=== PATIENT | female | born 1945 | race Caucasian/White ===

== ENCOUNTER → 2017-06-09 | Outpatient (REF) | payer OTHER ==
[2017-06-09 18:19] LABS: PERCENT SATURATION 45.6 % (13.2-37.4)
== END ==
LOC: M LAB REF 17:13
PROVIDERS: ATTEND Internal Medicine Nephrology
DX: N18.9 Chronic kidney disease, unspecified (principal); D63.1 Anemia in chronic kidney disease

== ENCOUNTER → 2017-10-14 | Outpatient (REF) | payer OTHER ==
[2017-10-14 18:50] LABS: FOLATE > 24.0 NG/ML; VITAMIN B12 LEVEL 1020 PG/ML
[2017-10-14 19:14] LABS: FREE T4 0.66 NG/DL (0.76-1.46)
== END ==
LOC: M LAB REF 17:23
PROVIDERS: ATTEND Internal Medicine Nephrology
DX: R63.4 Abnormal weight loss (principal); D53.1 Other megaloblastic anemias, not elsewhere classified

== ENCOUNTER 2018-03-06 13:39 | Inpatient (IN) | payer MEDICARE, OTHER ==
[2018-03-06] MEDS ORDERED: MAALOX 30 ML SUSP *UDC PO (17:45)
[2018-03-06] MEDS ORDERED: traZODone 50 MG TAB PO (17:45)
[2018-03-06] MEDS ORDERED: MOM 30ML SUSPENSION UDC PO (17:45)
[2018-03-06] MEDS: LATANOPROST 0.005% OPHTH SOLN 2.5 ML OU (22:24)
[2018-03-06] MEDS: SIMVASTATIN 20 MG TAB PO (22:24)
[2018-03-06] MEDS: OXcarbazepine 300 MG TAB PO (22:24)
[2018-03-06] MEDS: ACETAMINOPHEN TAB 650MG DOSE (2X325MG) PO (22:41)
[2018-03-07] MEDS: ACETAMINOPHEN TAB 650MG DOSE (2X325MG) PO ×4 (04:59→22:54)
[2018-03-07 07:12] LABS: BASO % 0.4 % (0.0-1.0); EOS # 0.2 10^3/uL (0.0-0.50); EOS % 1.6 % (0.0-3.0); HEMATOCRIT 33.4 % (36.0-47.0); HEMOGLOBIN 11.5 g/dl (12.0-15.5); IMMATURE GRANULOCYTE % 0.2 % (0-3.0); LYMPH # 1.6 10^3/uL (1.5-4.5); LYMPH % 17.6 % (24.0-44.0); MEAN CORPUSCULAR HEMOGLOBIN 34.6 pg (27.0-33.0); MEAN CORPUSCULAR HGB CONC 34.4 g/dl (32.0-36.5); MEAN CORPUSCULAR VOLUME 100.6 fl (80.0-96.0); MONO # 0.8 10^3/uL (0.0-0.8); MONO % 8.8 % (0.0-5.0); NEUTROPHILS # 6.5 10^3/uL (1.8-7.7); NEUTROPHILS % 71.4 % (36.0-66.0); PLATELET COUNT, AUTOMATED 202 10^3/uL (150-450); RED BLOOD COUNT 3.32 10^6/uL (4.00-5.40); RED CELL DISTRIBUTION WIDTH 11.5 % (11.5-14.5); WHITE BLOOD COUNT 9.2 10^3/uL (4.0-10.0)
[2018-03-07 07:35] LABS: ALBUMIN 3.8 GM/DL (3.2-5.2); ALBUMIN/GLOBULIN RATIO 1.36 (1.00-1.93); ALKALINE PHOSPHATASE 66 U/L (45-117); ALT/SGPT 28 U/L (12-78); ANION GAP 7 MEQ/L (8-16); AST/SGOT 27 U/L (7-37); BILIRUBIN,TOTAL 0.4 MG/DL (0.2-1.0); BLOOD UREA NITROGEN 38 MG/DL (7-18); CALCIUM LEVEL 9.2 MG/DL (8.8-10.2); CARBON DIOXIDE LEVEL 22 MEQ/L (21-32); CHLORIDE LEVEL 118 MEQ/L (98-107); CREATININE FOR GFR 1.83 MG/DL (0.55-1.30); GLOMERULAR FILTRATION RATE 29.1 (>39); GLUCOSE, FASTING 96 MG/DL (70-100); SODIUM LEVEL 147 MEQ/L (136-145); TOTAL PROTEIN 6.6 GM/DL (6.4-8.2)
[2018-03-07] MEDS: FUROSEMIDE 20 MG TAB PO (08:15)
[2018-03-07] MEDS: ASPIRIN 81 MG ENTERIC TAB PO (08:15)
[2018-03-07] MEDS: LOSARTAN 25 MG TAB PO (08:16)
[2018-03-07] MEDS: OXcarbazepine 300 MG TAB PO ×2 (08:16→20:35)
[2018-03-07] MEDS: ARIPiprazole 2 MG TAB PO (17:02)
[2018-03-07] MEDS: LATANOPROST 0.005% OPHTH SOLN 2.5 ML OU (20:35)
[2018-03-07] MEDS: SIMVASTATIN 20 MG TAB PO (20:35)
[2018-03-08] MEDS: ACETAMINOPHEN TAB 650MG DOSE (2X325MG) PO ×3 (05:06→21:16)
[2018-03-08] MEDS: OXcarbazepine 300 MG TAB PO ×2 (08:07→20:23)
[2018-03-08] MEDS: ASPIRIN 81 MG ENTERIC TAB PO (08:07)
[2018-03-08] MEDS: SIMVASTATIN 20 MG TAB PO (20:23)
[2018-03-08] MEDS: LATANOPROST 0.005% OPHTH SOLN 2.5 ML OU (20:24)
[2018-03-09] MEDS: ACETAMINOPHEN TAB 650MG DOSE (2X325MG) PO ×2 (03:29→22:11)
[2018-03-09] MEDS: OXcarbazepine 300 MG TAB PO ×2 (08:01→20:28)
[2018-03-09] MEDS: ASPIRIN 81 MG ENTERIC TAB PO (08:01)
[2018-03-09] MEDS: ACYCLOVIR 200 MG CAPSULE PO ×3 (13:36→20:28)
[2018-03-09] MEDS: ARIPiprazole 15 MG TAB (AbiLIFY) PO (20:28)
[2018-03-09] MEDS: SIMVASTATIN 20 MG TAB PO (20:28)
[2018-03-09] MEDS: LATANOPROST 0.005% OPHTH SOLN 2.5 ML OU (20:30)
[2018-03-10] MEDS: ACETAMINOPHEN TAB 650MG DOSE (2X325MG) PO ×2 (04:10→19:36)
[2018-03-10] MEDS: ACYCLOVIR 200 MG CAPSULE PO ×5 (06:11→22:07)
[2018-03-10 08:10] LABS: ALBUMIN 3.7 GM/DL (3.2-5.2); ALBUMIN/GLOBULIN RATIO 1.19 (1.00-1.93); ALKALINE PHOSPHATASE 75 U/L (45-117); ALT/SGPT 54 U/L (12-78); ANION GAP 5 MEQ/L (8-16); AST/SGOT 49 U/L (7-37); BILIRUBIN,TOTAL 0.4 MG/DL (0.2-1.0); BLOOD UREA NITROGEN 34 MG/DL (7-18); CALCIUM LEVEL 9.1 MG/DL (8.8-10.2); CARBON DIOXIDE LEVEL 22 MEQ/L (21-32); CHLORIDE LEVEL 115 MEQ/L (98-107); CREATININE FOR GFR 1.75 MG/DL (0.55-1.30); GLOMERULAR FILTRATION RATE 30.6 (>39); GLUCOSE, FASTING 105 MG/DL (70-100); POTASSIUM SERUM 3.9 MEQ/L (3.5-5.1); SODIUM LEVEL 142 MEQ/L (136-145); TOTAL PROTEIN 6.8 GM/DL (6.4-8.2)
[2018-03-10] MEDS: ASPIRIN 81 MG ENTERIC TAB PO (08:27)
[2018-03-10] MEDS: OXcarbazepine 300 MG TAB PO ×2 (08:27→20:50)
[2018-03-10 09:46] LABS: MAGNESIUM LEVEL 2.2 MG/DL (1.8-2.4)
[2018-03-10] MEDS: LATANOPROST 0.005% OPHTH SOLN 2.5 ML OU ×2 (20:50→21:18)
[2018-03-10] MEDS: SIMVASTATIN 20 MG TAB PO (20:50)
[2018-03-10] MEDS: ARIPiprazole 15 MG TAB (AbiLIFY) PO (20:50)
[2018-03-11] MEDS: ACYCLOVIR 200 MG CAPSULE PO ×5 (06:17→22:00)
[2018-03-11] MEDS: ACETAMINOPHEN TAB 650MG DOSE (2X325MG) PO ×2 (06:24→17:19)
[2018-03-11 07:45] LABS: HEMATOCRIT 33.2 % (36.0-47.0); HEMOGLOBIN 11.4 g/dl (12.0-15.5); MEAN CORPUSCULAR HEMOGLOBIN 34.2 pg (27.0-33.0); MEAN CORPUSCULAR HGB CONC 34.3 g/dl (32.0-36.5); MEAN CORPUSCULAR VOLUME 99.7 fl (80.0-96.0); PLATELET COUNT, AUTOMATED 183 10^3/uL (150-450); RED BLOOD COUNT 3.33 10^6/uL (4.00-5.40); RED CELL DISTRIBUTION WIDTH 11.7 % (11.5-14.5); WHITE BLOOD COUNT 15.8 10^3/uL (4.0-10.0)
[2018-03-11 08:26] LABS: ALBUMIN 3.6 GM/DL (3.2-5.2); ALBUMIN/GLOBULIN RATIO 1.16 (1.00-1.93); ALKALINE PHOSPHATASE 77 U/L (45-117); ALT/SGPT 67 U/L (12-78); ANION GAP 9 MEQ/L (8-16); AST/SGOT 51 U/L (7-37); BILIRUBIN,TOTAL 0.4 MG/DL (0.2-1.0); BLOOD UREA NITROGEN 33 MG/DL (7-18); CALCIUM LEVEL 9.2 MG/DL (8.8-10.2); CARBON DIOXIDE LEVEL 19 MEQ/L (21-32); CHLORIDE LEVEL 118 MEQ/L (98-107); CREATININE FOR GFR 1.91 MG/DL (0.55-1.30); GLOMERULAR FILTRATION RATE 27.7 (>39); GLUCOSE, FASTING 129 MG/DL (70-100); POTASSIUM SERUM 3.8 MEQ/L (3.5-5.1); SODIUM LEVEL 146 MEQ/L (136-145); TOTAL PROTEIN 6.7 GM/DL (6.4-8.2)
[2018-03-11] MEDS: ASPIRIN 81 MG ENTERIC TAB PO (08:40)
[2018-03-11] MEDS: OXcarbazepine 300 MG TAB PO (08:40)
[2018-03-11 09:38] LABS: ESTIMATED AVERAGE GLUCOSE 97 MG/DL (60-110)
[2018-03-11 10:34] LABS: IRON (FE) 16 UG/DL (50-170)
[2018-03-11 10:35] LABS: FERRITIN 733 NG/ML (8-252); PERCENT SATURATION 7.4 % (13.2-45.0); TOTAL IRON BINDING CAPACITY 217 UG/DL (250-450)
[2018-03-11] MEDS: cloNIDine 0.1 MG TAB PO (11:13)
[2018-03-11 14:30] LABS: KETONE, URINE AUTO RFX NEGATIVE (NEGATIVE); MUCUS, URINE RFX SMALL (NEGATIVE); NITRITE, URINE AUTO RFX NEGATIVE (NEGATIVE); RBC, URINE AUTO RFX 14 /HPF (0-3); SPECIFIC GRAVITY UR AUTO RFX 1.008 (1.002-1.035); SQUAM EPITHELIAL CELL UR AURFX 0 /HPF (0-6)
[2018-03-11 14:31] LABS: LEUKOCYTE ESTERASE UR AUTO RFX 3+ (NEGATIVE); WBC, URINE AUTO RFX TNTC /HPF (0-3)
[2018-03-11] MEDS: LACTOBACILLUS ACIDOPHILUS CAP (BACID) PO (20:22)
[2018-03-11] MEDS: CEPHALEXIN 500 MG CAP PO (20:22)
[2018-03-11] MEDS: OXcarbazepine 150 MG TAB PO (20:22)
[2018-03-11] MEDS: SIMVASTATIN 20 MG TAB PO (20:22)
[2018-03-11] MEDS: LATANOPROST 0.005% OPHTH SOLN 2.5 ML OU (21:00)
[2018-03-12] MEDS: ACETAMINOPHEN TAB 650MG DOSE (2X325MG) PO (01:42)
[2018-03-12] MEDS: ACYCLOVIR 200 MG CAPSULE PO ×2 (06:13→13:15)
[2018-03-12] MEDS: OXcarbazepine 150 MG TAB PO ×2 (08:10→21:00)
[2018-03-12] MEDS: ASPIRIN 81 MG ENTERIC TAB PO (08:10)
[2018-03-12] MEDS: LACTOBACILLUS ACIDOPHILUS CAP (BACID) PO ×2 (08:11→21:01)
[2018-03-12] MEDS: CEPHALEXIN 500 MG CAP PO ×2 (08:11→21:01)
[2018-03-12 11:07] LABS: HEMATOCRIT 31.3 % (36.0-47.0); HEMOGLOBIN 10.8 g/dl (12.0-15.5); MEAN CORPUSCULAR HEMOGLOBIN 34.8 pg (27.0-33.0); MEAN CORPUSCULAR HGB CONC 34.5 g/dl (32.0-36.5); PLATELET COUNT, AUTOMATED 147 10^3/uL (150-450); RED CELL DISTRIBUTION WIDTH 11.6 % (11.5-14.5); WHITE BLOOD COUNT 12.4 10^3/uL (4.0-10.0)
[2018-03-12 11:32] LABS: ALBUMIN 3.3 GM/DL (3.2-5.2); ALBUMIN/GLOBULIN RATIO 1.06 (1.00-1.93); ALKALINE PHOSPHATASE 71 U/L (45-117); ALT/SGPT 83 U/L (12-78); ANION GAP 10 MEQ/L (8-16); AST/SGOT 62 U/L (7-37); BILIRUBIN,TOTAL 0.4 MG/DL (0.2-1.0); BLOOD UREA NITROGEN 42 MG/DL (7-18); CARBON DIOXIDE LEVEL 19 MEQ/L (21-32); CHLORIDE LEVEL 112 MEQ/L (98-107); CREATININE FOR GFR 2.19 MG/DL (0.55-1.30); GLOMERULAR FILTRATION RATE 23.6 (>39); GLUCOSE, FASTING 87 MG/DL (70-100); POTASSIUM SERUM 3.4 MEQ/L (3.5-5.1); SODIUM LEVEL 141 MEQ/L (136-145); TOTAL PROTEIN 6.4 GM/DL (6.4-8.2)
[2018-03-12 12:40] LABS: HEPATITIS B CORE ANTIBODY IGM NEGATIVE (NEGATIVE); HEPATITIS C VIRUS ABY INDEX < 0.0 INDEX (<0.8)
[2018-03-12 12:42] LABS: HEPATITIS A ANTIBODY IGM NEGATIVE (NEGATIVE)
[2018-03-12 12:45] LABS: HEPATITIS B SURFACE ANTIGEN NEGATIVE (NEGATIVE)
[2018-03-12 13:10] LABS: VITAMIN B12 LEVEL 472 PG/ML (247-911)
[2018-03-12 13:15] LABS: FOLATE > 24.0 NG/ML (>5.4)
[2018-03-12] MEDS: SIMVASTATIN 20 MG TAB PO (21:01)
[2018-03-12] MEDS: ZIPRASIDONE 20MG CAPSULE (GEODON) PO (21:01)
[2018-03-12] MEDS: LATANOPROST 0.005% OPHTH SOLN 2.5 ML OU (21:38)
[2018-03-13] MEDS: ACETAMINOPHEN TAB 650MG DOSE (2X325MG) PO ×2 (06:02→14:14)
[2018-03-13 07:13] LABS: BASO % 0.2 % (0.0-1.0); HEMATOCRIT 29.7 % (36.0-47.0); HEMOGLOBIN 10.4 g/dl (12.0-15.5); IMMATURE GRANULOCYTE % 0.5 % (0-3.0); LYMPH # 0.8 10^3/uL (1.5-4.5); LYMPH % 6.4 % (24.0-44.0); MEAN CORPUSCULAR HEMOGLOBIN 34.8 pg (27.0-33.0); MEAN CORPUSCULAR VOLUME 99.3 fl (80.0-96.0); MONO # 1.2 10^3/uL (0.0-0.8); MONO % 9.1 % (0.0-5.0); NEUTROPHILS # 10.7 10^3/uL (1.8-7.7); NEUTROPHILS % 83.8 % (36.0-66.0); PLATELET COUNT, AUTOMATED 140 10^3/uL (150-450); RED BLOOD COUNT 2.99 10^6/uL (4.00-5.40); RED CELL DISTRIBUTION WIDTH 11.7 % (11.5-14.5); WHITE BLOOD COUNT 12.8 10^3/uL (4.0-10.0)
[2018-03-13 07:33] LABS: ALKALINE PHOSPHATASE 67 U/L (45-117); ALT/SGPT 71 U/L (12-78); ANION GAP 13 MEQ/L (8-16); AST/SGOT 58 U/L (7-37); BILIRUBIN,TOTAL 0.4 MG/DL (0.2-1.0); BLOOD UREA NITROGEN 44 MG/DL (7-18); CALCIUM LEVEL 8.8 MG/DL (8.8-10.2); CARBON DIOXIDE LEVEL 17 MEQ/L (21-32); CHLORIDE LEVEL 113 MEQ/L (98-107); CREATININE FOR GFR 2.23 MG/DL (0.55-1.30); GLOMERULAR FILTRATION RATE 23.1 (>39); GLUCOSE, FASTING 111 MG/DL (70-100); POTASSIUM SERUM 3.1 MEQ/L (3.5-5.1); SODIUM LEVEL 143 MEQ/L (136-145)
[2018-03-13] MEDS: ASPIRIN 81 MG ENTERIC TAB PO (08:55)
[2018-03-13] MEDS: CEPHALEXIN 500 MG CAP PO ×2 (08:56→21:17)
[2018-03-13] MEDS: ZIPRASIDONE 20MG CAPSULE (GEODON) PO ×2 (08:56→17:44)
[2018-03-13] MEDS: OXcarbazepine 150 MG TAB PO ×2 (08:57→21:17)
[2018-03-13] MEDS: LACTOBACILLUS ACIDOPHILUS CAP (BACID) PO ×3 (08:59→21:17)
[2018-03-13] MEDS: SIMVASTATIN 20 MG TAB PO (21:17)
[2018-03-13] MEDS: LATANOPROST 0.005% OPHTH SOLN 2.5 ML OU (21:20)
[2018-03-13] MEDS: POTASSIUM CHLORIDE 10% LIQ 20 MEQ/15 ML UDC PO (23:07)
[2018-03-14] MEDS: ACETAMINOPHEN TAB 650MG DOSE (2X325MG) PO (06:27)
[2018-03-14 06:34] LABS: BASO % 0.2 % (0.0-1.0); EOS % 0.1 % (0.0-3.0); HEMATOCRIT 26.7 % (36.0-47.0); HEMOGLOBIN 9.4 g/dl (12.0-15.5); IMMATURE GRANULOCYTE % 0.4 % (0-3.0); LYMPH % 7.8 % (24.0-44.0); MEAN CORPUSCULAR HEMOGLOBIN 34.8 pg (27.0-33.0); MEAN CORPUSCULAR HGB CONC 35.2 g/dl (32.0-36.5); MEAN CORPUSCULAR VOLUME 98.9 fl (80.0-96.0); MONO % 15.9 % (0.0-5.0); NEUTROPHILS # 9.8 10^3/uL (1.8-7.7); NEUTROPHILS % 75.6 % (36.0-66.0); PLATELET COUNT, AUTOMATED 138 10^3/uL (150-450); RED CELL DISTRIBUTION WIDTH 11.9 % (11.5-14.5)
[2018-03-14 06:53] LABS: ALBUMIN 2.6 GM/DL (3.2-5.2); ALBUMIN/GLOBULIN RATIO 0.87 (1.00-1.93); ALKALINE PHOSPHATASE 56 U/L (45-117); ALT/SGPT 65 U/L (12-78); ANION GAP 11 MEQ/L (8-16); AST/SGOT 61 U/L (7-37); BILIRUBIN,TOTAL 0.4 MG/DL (0.2-1.0); BLOOD UREA NITROGEN 53 MG/DL (7-18); CALCIUM LEVEL 8.7 MG/DL (8.8-10.2); CARBON DIOXIDE LEVEL 16 MEQ/L (21-32); CHLORIDE LEVEL 118 MEQ/L (98-107); CREATININE FOR GFR 2.42 MG/DL (0.55-1.30); GLUCOSE, FASTING 101 MG/DL (70-100); POTASSIUM SERUM 3.2 MEQ/L (3.5-5.1); SODIUM LEVEL 145 MEQ/L (136-145); TOTAL PROTEIN 5.6 GM/DL (6.4-8.2)
[2018-03-14 07:13] LABS: MONO # 2.1 10^3/uL (0.0-0.8); POSITIVE DIFF POS FLAG
[2018-03-14] MEDS: OXcarbazepine 150 MG TAB PO (08:54)
[2018-03-14] MEDS: CEPHALEXIN 500 MG CAP PO (08:54)
[2018-03-14] MEDS: ZIPRASIDONE 20MG CAPSULE (GEODON) PO ×2 (08:54→18:29)
[2018-03-14] MEDS: LACTOBACILLUS ACIDOPHILUS CAP (BACID) PO (08:54)
[2018-03-14] MEDS: ASPIRIN 81 MG ENTERIC TAB PO (08:54)
[2018-03-14] MEDS: PILL CRUSHER/CUTTER 1 EACH XX (08:55)
[2018-03-14] MEDS: POTASSIUM CHLORIDE 10% LIQ 20 MEQ/15 ML UDC PO (17:49)
[2018-03-14 17:58] LABS: BASO % 0.2 % (0.0-1.0); EOS % 0.3 % (0.0-3.0); HEMATOCRIT 30.2 % (36.0-47.0); HEMOGLOBIN 10.2 g/dl (12.0-15.5); IMMATURE GRANULOCYTE % 0.4 % (0-3.0); LYMPH % 7.6 % (24.0-44.0); MEAN CORPUSCULAR HGB CONC 33.8 g/dl (32.0-36.5); MEAN CORPUSCULAR VOLUME 100.7 fl (80.0-96.0); MONO # 1.8 10^3/uL (0.0-0.8); NEUTROPHILS # 9.7 10^3/uL (1.8-7.7); NEUTROPHILS % 77.5 % (36.0-66.0); PLATELET COUNT, AUTOMATED 145 10^3/uL (150-450); RED CELL DISTRIBUTION WIDTH 11.8 % (11.5-14.5); WHITE BLOOD COUNT 12.5 10^3/uL (4.0-10.0)
[2018-03-14 18:25] LABS: ALBUMIN/GLOBULIN RATIO 0.77 (1.00-1.93); ALKALINE PHOSPHATASE 63 U/L (45-117); ALT/SGPT 83 U/L (12-78); ANION GAP 7 MEQ/L (8-16); AST/SGOT 83 U/L (7-37); BILIRUBIN,TOTAL 0.3 MG/DL (0.2-1.0); BLOOD UREA NITROGEN 52 MG/DL (7-18); CALCIUM LEVEL 9.1 MG/DL (8.8-10.2); CARBON DIOXIDE LEVEL 19 MEQ/L (21-32); CHLORIDE LEVEL 116 MEQ/L (98-107); CREATININE FOR GFR 2.45 MG/DL (0.55-1.30); GLOMERULAR FILTRATION RATE 20.7 (>39); GLUCOSE, FASTING 134 MG/DL (70-100); SODIUM LEVEL 142 MEQ/L (136-145); TOTAL PROTEIN 6.9 GM/DL (6.4-8.2)
[2018-03-14] MEDS ORDERED: ACETAMINOPHEN TAB 650MG DOSE (2X325MG) PO (20:00)
[2018-03-14] MEDS ORDERED: NS 0.45% 1,000 ML IV (20:15)
[2018-03-15] MEDS ORDERED: ENOXAPARIN 30 MG/0.3 ML SYR (J1650) SC (09:00)
== END 2018-03-14 21:02 | disposition short-term general hospital (02) | DRG 885 ==
LOC: M PSY 03-12 17:01 → M ED 13:39 → M ED INP 17:39 → M PSY 20:15
DX: F31.0 Bipolar disorder, current episode hypomanic (principal); N39.0 Urinary tract infection, site not specified; N17.9 Acute kidney failure, unspecified; F05 Delirium due to known physiological condition; F43.10 Post-traumatic stress disorder, unspecified; I12.9 Hypertensive chronic kidney disease with stage 1 through stage 4 chronic kidney disease, or unspecified chronic kidney disease; E78.00 Pure hypercholesterolemia, unspecified; M79.661 Pain in right lower leg; M79.662 Pain in left lower leg; E86.0 Dehydration; R19.7 Diarrhea, unspecified; L71.9 Rosacea, unspecified; B96.1 Klebsiella pneumoniae [K. pneumoniae] as the cause of diseases classified elsewhere; E87.6 Hypokalemia; D64.9 Anemia, unspecified; E11.22 Type 2 diabetes mellitus with diabetic chronic kidney disease; N18.9 Chronic kidney disease, unspecified; Z79.82 Long term (current) use of aspirin; Z79.899 Other long term (current) drug therapy; Z88.8 Allergy status to other drugs, medicaments and biological substances

== ENCOUNTER 2018-03-14 21:05 | Inpatient (IN) | payer OTHER, MEDICARE ==
[2018-03-14 21:55] LABS: LACTIC ACID SEPSIS PROTOCOL 1.5 MMOL/L (0.4-2.0)
[2018-03-14 22:04] LABS: ANION GAP 10 MEQ/L (8-16); BLOOD UREA NITROGEN 50 MG/DL (7-18); CALCIUM LEVEL 8.4 MG/DL (8.8-10.2); CARBON DIOXIDE LEVEL 17 MEQ/L (21-32); CHLORIDE LEVEL 118 MEQ/L (98-107); CREATININE FOR GFR 2.33 MG/DL (0.55-1.30); GLUCOSE, FASTING 117 MG/DL (70-100); POTASSIUM SERUM 3.6 MEQ/L (3.5-5.1); SODIUM LEVEL 145 MEQ/L (136-145)
[2018-03-14] MEDS: NS 1,000 ML IV (22:13)
[2018-03-14] MEDS: LATANOPROST 0.005% OPHTH SOLN 2.5 ML OU (22:14)
[2018-03-14] MEDS: cefTRIAXone SOD 1 GM in D5W MINI-BAG PLUS 50 ML IV (22:14)
[2018-03-14] MEDS: POTASSIUM CHLORIDE 10% LIQ 20 MEQ/15 ML UDC PO (22:37)
[2018-03-15] MEDS: ACETAMINOPHEN TAB 650MG DOSE (2X325MG) PO ×4 (03:02→23:27)
[2018-03-15 05:18] LABS: BASO % 0.1 % (0.0-1.0); EOS % 0.2 % (0.0-3.0); HEMOGLOBIN 8.7 g/dl (12.0-15.5); IMMATURE GRANULOCYTE % 0.3 % (0-3.0); LYMPH # 0.9 10^3/uL (1.5-4.5); LYMPH % 8.8 % (24.0-44.0); MEAN CORPUSCULAR HEMOGLOBIN 34.1 pg (27.0-33.0); MEAN CORPUSCULAR HGB CONC 34.8 g/dl (32.0-36.5); MONO # 1.4 10^3/uL (0.0-0.8); NEUTROPHILS # 7.6 10^3/uL (1.8-7.7); NEUTROPHILS % 76.6 % (36.0-66.0); PLATELET COUNT, AUTOMATED 146 10^3/uL (150-450); RED BLOOD COUNT 2.55 10^6/uL (4.00-5.40); RED CELL DISTRIBUTION WIDTH 11.8 % (11.5-14.5)
[2018-03-15 05:42] LABS: FERRITIN 1145 NG/ML (8-252); IRON (FE) 27 UG/DL (50-170); PERCENT SATURATION 19.9 % (13.2-45.0); TOTAL IRON BINDING CAPACITY 136 UG/DL (250-450)
[2018-03-15 05:47] LABS: ALBUMIN 2.3 GM/DL (3.2-5.2); ALBUMIN/GLOBULIN RATIO 0.68 (1.00-1.93); ALKALINE PHOSPHATASE 58 U/L (45-117); ALT/SGPT 70 U/L (12-78); ANION GAP 9 MEQ/L (8-16); AST/SGOT 65 U/L (7-37); BILIRUBIN,TOTAL 0.2 MG/DL (0.2-1.0); BLOOD UREA NITROGEN 46 MG/DL (7-18); CALCIUM LEVEL 8.8 MG/DL (8.8-10.2); CARBON DIOXIDE LEVEL 15 MEQ/L (21-32); CHLORIDE LEVEL 123 MEQ/L (98-107); CREATININE FOR GFR 2.07 MG/DL (0.55-1.30); GLOMERULAR FILTRATION RATE 25.2 (>39); GLUCOSE, FASTING 103 MG/DL (70-100); MAGNESIUM LEVEL 2.1 MG/DL (1.8-2.4); POTASSIUM SERUM 3.7 MEQ/L (3.5-5.1); SODIUM LEVEL 147 MEQ/L (136-145); TOTAL PROTEIN 5.7 GM/DL (6.4-8.2)
[2018-03-15] MEDS: NS 1,000 ML IV (07:00)
[2018-03-15] MEDS: LACTOBACILLUS ACIDOPHILUS CAP (BACID) PO ×2 (08:53→20:15)
[2018-03-15] MEDS: ASPIRIN 81 MG ENTERIC TAB PO (08:53)
[2018-03-15] MEDS: HEPARIN SOD (PORCINE) 5000 UNITS/ML VIAL SQ ×2 (08:53→20:15)
[2018-03-15] MEDS ORDERED: ENOXAPARIN 30 MG/0.3 ML SYR (J1650) SC (09:00)
[2018-03-15] MEDS: **hydrALAZINE** 10 MG TAB PO (16:38)
[2018-03-15] MEDS: amLODIPine 10 MG TAB PO (19:07)
[2018-03-15] MEDS: SIMVASTATIN 20 MG TAB PO (20:15)
[2018-03-15] MEDS: LATANOPROST 0.005% OPHTH SOLN 2.5 ML OU (20:15)
[2018-03-16 05:36] LABS: BASO % 0.3 % (0.0-1.0); EOS % 0.3 % (0.0-3.0); HEMATOCRIT 29.9 % (36.0-47.0); HEMOGLOBIN 10.2 g/dl (12.0-15.5); IMMATURE GRANULOCYTE % 0.6 % (0-3.0); LYMPH # 1.3 10^3/uL (1.5-4.5); LYMPH % 10.4 % (24.0-44.0); MEAN CORPUSCULAR HEMOGLOBIN 33.3 pg (27.0-33.0); MEAN CORPUSCULAR HGB CONC 34.1 g/dl (32.0-36.5); MEAN CORPUSCULAR VOLUME 97.7 fl (80.0-96.0); MONO # 1.2 10^3/uL (0.0-0.8); MONO % 9.8 % (0.0-5.0); NEUTROPHILS # 9.4 10^3/uL (1.8-7.7); NEUTROPHILS % 78.6 % (36.0-66.0); PLATELET COUNT, AUTOMATED 195 10^3/uL (150-450); RED BLOOD COUNT 3.06 10^6/uL (4.00-5.40); RED CELL DISTRIBUTION WIDTH 11.9 % (11.5-14.5)
[2018-03-16 05:56] LABS: ALBUMIN 2.8 GM/DL (3.2-5.2); ALKALINE PHOSPHATASE 64 U/L (45-117); ALT/SGPT 73 U/L (12-78); ANION GAP 10 MEQ/L (8-16); AST/SGOT 51 U/L (7-37); BILIRUBIN,TOTAL 0.4 MG/DL (0.2-1.0); BLOOD UREA NITROGEN 35 MG/DL (7-18); CALCIUM LEVEL 9.3 MG/DL (8.8-10.2); CARBON DIOXIDE LEVEL 15 MEQ/L (21-32); CHLORIDE LEVEL 126 MEQ/L (98-107); CREATININE FOR GFR 1.94 MG/DL (0.55-1.30); GLOMERULAR FILTRATION RATE 27.2 (>39); GLUCOSE, FASTING 106 MG/DL (70-100); POTASSIUM SERUM 3.5 MEQ/L (3.5-5.1); SODIUM LEVEL 151 MEQ/L (136-145); TOTAL PROTEIN 6.8 GM/DL (6.4-8.2)
[2018-03-16] MEDS: ACETAMINOPHEN TAB 650MG DOSE (2X325MG) PO ×3 (06:01→20:38)
[2018-03-16] MEDS: LACTOBACILLUS ACIDOPHILUS CAP (BACID) PO ×2 (08:31→20:38)
[2018-03-16] MEDS: ASPIRIN 81 MG ENTERIC TAB PO (08:31)
[2018-03-16] MEDS: HEPARIN SOD (PORCINE) 5000 UNITS/ML VIAL SQ ×2 (08:32→20:38)
[2018-03-16 16:10] LABS: HEMATOCRIT 30.8 % (36.0-47.0); HEMOGLOBIN 10.4 g/dl (12.0-15.5); MEAN CORPUSCULAR HEMOGLOBIN 33.4 pg (27.0-33.0); MEAN CORPUSCULAR HGB CONC 33.8 g/dl (32.0-36.5); PLATELET COUNT, AUTOMATED 239 10^3/uL (150-450); RED BLOOD COUNT 3.11 10^6/uL (4.00-5.40); RED CELL DISTRIBUTION WIDTH 12.1 % (11.5-14.5); WHITE BLOOD COUNT 13.6 10^3/uL (4.0-10.0)
[2018-03-16 16:20] LABS: ANION GAP 9 MEQ/L (8-16); BLOOD UREA NITROGEN 35 MG/DL (7-18); CALCIUM LEVEL 9.3 MG/DL (8.8-10.2); CARBON DIOXIDE LEVEL 16 MEQ/L (21-32); CHLORIDE LEVEL 125 MEQ/L (98-107); CREATININE FOR GFR 1.98 MG/DL (0.55-1.30); GLOMERULAR FILTRATION RATE 26.5 (>39); GLUCOSE, FASTING 106 MG/DL (70-100); POTASSIUM SERUM 3.8 MEQ/L (3.5-5.1); SODIUM LEVEL 150 MEQ/L (136-145)
[2018-03-16] MEDS: CEPHALEXIN 500 MG CAP PO ×2 (16:34→20:38)
[2018-03-16] MEDS: D5W/0.45% SODIUM CHLORIDE 1,000 ML IV (17:14)
[2018-03-16] MEDS: SIMVASTATIN 20 MG TAB PO (20:38)
[2018-03-16] MEDS: LATANOPROST 0.005% OPHTH SOLN 2.5 ML OU (20:39)
[2018-03-16] MEDS: LOSARTAN 25 MG TAB PO (20:39)
[2018-03-17] MEDS: ACETAMINOPHEN TAB 650MG DOSE (2X325MG) PO (03:00)
[2018-03-17 07:04] LABS: BASO % 0.2 % (0.0-1.0); EOS % 0.2 % (0.0-3.0); HEMATOCRIT 30.1 % (36.0-47.0); HEMOGLOBIN 10.3 g/dl (12.0-15.5); IMMATURE GRANULOCYTE % 0.5 % (0-3.0); LYMPH % 7.8 % (24.0-44.0); MEAN CORPUSCULAR HEMOGLOBIN 33.8 pg (27.0-33.0); MEAN CORPUSCULAR HGB CONC 34.2 g/dl (32.0-36.5); MEAN CORPUSCULAR VOLUME 98.7 fl (80.0-96.0); MONO # 0.9 10^3/uL (0.0-0.8); MONO % 7.3 % (0.0-5.0); NEUTROPHILS # 10.8 10^3/uL (1.8-7.7); PLATELET COUNT, AUTOMATED 255 10^3/uL (150-450); RED BLOOD COUNT 3.05 10^6/uL (4.00-5.40); WHITE BLOOD COUNT 12.8 10^3/uL (4.0-10.0)
[2018-03-17 07:27] LABS: ALBUMIN 2.9 GM/DL (3.2-5.2); ALBUMIN/GLOBULIN RATIO 0.67 (1.00-1.93); ALKALINE PHOSPHATASE 64 U/L (45-117); ALT/SGPT 64 U/L (12-78); ANION GAP 8 MEQ/L (8-16); AST/SGOT 38 U/L (7-37); BILIRUBIN,TOTAL 0.4 MG/DL (0.2-1.0); BLOOD UREA NITROGEN 32 MG/DL (7-18); CALCIUM LEVEL 9.5 MG/DL (8.8-10.2); CARBON DIOXIDE LEVEL 18 MEQ/L (21-32); CHLORIDE LEVEL 123 MEQ/L (98-107); CREATININE FOR GFR 2.01 MG/DL (0.55-1.30); GLOMERULAR FILTRATION RATE 26.1 (>39); GLUCOSE, FASTING 109 MG/DL (70-100); POTASSIUM SERUM 3.5 MEQ/L (3.5-5.1); SODIUM LEVEL 149 MEQ/L (136-145); TOTAL PROTEIN 7.2 GM/DL (6.4-8.2)
[2018-03-17] MEDS ORDERED: D5W 1,000 ML IV (07:30)
[2018-03-17] MEDS: CEPHALEXIN 500 MG CAP PO ×2 (09:07→19:50)
[2018-03-17] MEDS: LACTOBACILLUS ACIDOPHILUS CAP (BACID) PO ×2 (09:07→19:49)
[2018-03-17] MEDS: HEPARIN SOD (PORCINE) 5000 UNITS/ML VIAL SQ ×2 (09:07→19:49)
[2018-03-17] MEDS: ASPIRIN 81 MG ENTERIC TAB PO (09:07)
[2018-03-17 13:46] LABS: ANION GAP 9 MEQ/L (8-16); BLOOD UREA NITROGEN 32 MG/DL (7-18); CALCIUM LEVEL 8.8 MG/DL (8.8-10.2); CARBON DIOXIDE LEVEL 17 MEQ/L (21-32); CHLORIDE LEVEL 120 MEQ/L (98-107); CREATININE FOR GFR 1.91 MG/DL (0.55-1.30); GLOMERULAR FILTRATION RATE 27.7 (>39); GLUCOSE, FASTING 118 MG/DL (70-100); POTASSIUM SERUM 3.6 MEQ/L (3.5-5.1); SODIUM LEVEL 146 MEQ/L (136-145)
[2018-03-17 18:29] LABS: CHLORIDE,RANDOM URINE 34 MEQ/L; CREATININE,RANDOM URINE 44.1 MG/DL; POTASSIUM RANDOM URINE 5.2 MEQ/L; SODIUM,RANDOM URINE 35 MEQ/L
[2018-03-17] MEDS: LORazepam 0.5 MG TAB PO (18:46)
[2018-03-17] MEDS: SIMVASTATIN 20 MG TAB PO (19:49)
[2018-03-17] MEDS: LATANOPROST 0.005% OPHTH SOLN 2.5 ML OU (19:50)
[2018-03-17] MEDS: LOSARTAN 25 MG TAB PO (19:52)
[2018-03-17 20:40] LABS: APPEARANCE, URINE CLEAR (CLEAR); BACTERIA, URINE AUTO NEGATIVE (NEGATIVE); BILIRUBIN, URINE AUTO NEGATIVE (NEGATIVE); BLOOD, URINE BLOOD 1+ (NEGATIVE); COLOR, URINE STRAW (YELLOW); GLUCOSE, URINE (UA) AUTO NEGATIVE (NEGATIVE); KETONE, URINE AUTO NEGATIVE (NEGATIVE); LEUKOCYTE ESTERASE, URINE AUTO NEGATIVE (NEGATIVE); NITRITE, URINE AUTO NEGATIVE (NEGATIVE); PROTEIN, URINE AUTO 3+ mg/dL (NEGATIVE); RBC, URINE AUTO 1 /HPF (0-3); SPECIFIC GRAVITY URINE AUTO 1.007 (1.002-1.035); SQUAMOUS EPITHELIAL CELL UR AU 0 /HPF (0-6); TRANSITIONAL EPITHELIAL AUTO <1 /HPF; UROBILINOGEN, URINE AUTO 0.2 mg/dL (0.0-2.0); WBC, URINE AUTO 4 /HPF (0-3)
[2018-03-18 06:44] LABS: BASO % 0.3 % (0.0-1.0); EOS # 0.1 10^3/uL (0.0-0.50); EOS % 0.9 % (0.0-3.0); HEMOGLOBIN 10.3 g/dl (12.0-15.5); IMMATURE GRANULOCYTE % 0.5 % (0-3.0); LYMPH # 1.4 10^3/uL (1.5-4.5); LYMPH % 10.6 % (24.0-44.0); MEAN CORPUSCULAR HEMOGLOBIN 34.1 pg (27.0-33.0); MEAN CORPUSCULAR HGB CONC 34.3 g/dl (32.0-36.5); MEAN CORPUSCULAR VOLUME 99.3 fl (80.0-96.0); MONO # 1.1 10^3/uL (0.0-0.8); MONO % 8.6 % (0.0-5.0); NEUTROPHILS # 10.5 10^3/uL (1.8-7.7); NEUTROPHILS % 79.1 % (36.0-66.0); PLATELET COUNT, AUTOMATED 301 10^3/uL (150-450); RED BLOOD COUNT 3.02 10^6/uL (4.00-5.40); RED CELL DISTRIBUTION WIDTH 11.9 % (11.5-14.5); WHITE BLOOD COUNT 13.3 10^3/uL (4.0-10.0)
[2018-03-18 07:10] LABS: ALBUMIN 2.7 GM/DL (3.2-5.2); ALBUMIN/GLOBULIN RATIO 0.66 (1.00-1.93); ALKALINE PHOSPHATASE 59 U/L (45-117); ALT/SGPT 54 U/L (12-78); ANION GAP 8 MEQ/L (8-16); AST/SGOT 31 U/L (7-37); BILIRUBIN,TOTAL 0.3 MG/DL (0.2-1.0); BLOOD UREA NITROGEN 32 MG/DL (7-18); CALCIUM LEVEL 9.4 MG/DL (8.8-10.2); CARBON DIOXIDE LEVEL 17 MEQ/L (21-32); CHLORIDE LEVEL 122 MEQ/L (98-107); CREATININE FOR GFR 2.06 MG/DL (0.55-1.30); GLOMERULAR FILTRATION RATE 25.3 (>39); GLUCOSE, FASTING 106 MG/DL (70-100); POTASSIUM SERUM 3.5 MEQ/L (3.5-5.1); SODIUM LEVEL 147 MEQ/L (136-145); TOTAL PROTEIN 6.8 GM/DL (6.4-8.2)
[2018-03-18] MEDS: ASPIRIN 81 MG ENTERIC TAB PO (11:02)
[2018-03-18] MEDS: LACTOBACILLUS ACIDOPHILUS CAP (BACID) PO ×2 (11:02→19:40)
[2018-03-18] MEDS: cefTRIAXone SOD 2 GM in D5W MINI-BAG PLUS 50 ML IV (11:03)
[2018-03-18] MEDS: HEPARIN SOD (PORCINE) 5000 UNITS/ML VIAL SQ ×2 (11:03→19:40)
[2018-03-18] MEDS: D5W 1,000 ML IV ×2 (11:04→19:42)
[2018-03-18 17:22] LABS: ANION GAP 11 MEQ/L (8-16); BLOOD UREA NITROGEN 28 MG/DL (7-18); CALCIUM LEVEL 8.5 MG/DL (8.8-10.2); CARBON DIOXIDE LEVEL 15 MEQ/L (21-32); CHLORIDE LEVEL 120 MEQ/L (98-107); CREATININE FOR GFR 1.88 MG/DL (0.55-1.30); GLOMERULAR FILTRATION RATE 28.2 (>39); GLUCOSE, FASTING 202 MG/DL (70-100); POTASSIUM SERUM 3.5 MEQ/L (3.5-5.1); SODIUM LEVEL 146 MEQ/L (136-145)
[2018-03-18] MEDS: LATANOPROST 0.005% OPHTH SOLN 2.5 ML OU (19:40)
[2018-03-18] MEDS: ACETAMINOPHEN TAB 650MG DOSE (2X325MG) PO (19:41)
[2018-03-18] MEDS: SIMVASTATIN 20 MG TAB PO (19:41)
[2018-03-18] MEDS: LORazepam 0.5 MG TAB PO (19:41)
[2018-03-18] MEDS: LOSARTAN 25 MG TAB PO (19:42)
[2018-03-19] MEDS: LACTOBACILLUS ACIDOPHILUS CAP (BACID) PO ×2 (09:17→21:58)
[2018-03-19] MEDS: ASPIRIN 81 MG ENTERIC TAB PO (09:17)
[2018-03-19] MEDS: ACETAMINOPHEN TAB 650MG DOSE (2X325MG) PO (09:18)
[2018-03-19 09:19] LABS: HEMATOCRIT 29.9 % (36.0-47.0); HEMOGLOBIN 10.4 g/dl (12.0-15.5); MEAN CORPUSCULAR HEMOGLOBIN 33.7 pg (27.0-33.0); MEAN CORPUSCULAR HGB CONC 34.8 g/dl (32.0-36.5); MEAN CORPUSCULAR VOLUME 96.8 fl (80.0-96.0); PLATELET COUNT, AUTOMATED 350 10^3/uL (150-450); RED BLOOD COUNT 3.09 10^6/uL (4.00-5.40); RED CELL DISTRIBUTION WIDTH 11.6 % (11.5-14.5); WHITE BLOOD COUNT 13.3 10^3/uL (4.0-10.0)
[2018-03-19] MEDS: cefTRIAXone SOD 2 GM in D5W MINI-BAG PLUS 50 ML IV (09:19)
[2018-03-19] MEDS: HEPARIN SOD (PORCINE) 5000 UNITS/ML VIAL SQ ×2 (09:19→21:59)
[2018-03-19] MEDS: LORazepam 0.5 MG TAB PO ×2 (09:38→17:43)
[2018-03-19 09:41] LABS: ANION GAP 9 MEQ/L (8-16); BLOOD UREA NITROGEN 24 MG/DL (7-18); CALCIUM LEVEL 8.8 MG/DL (8.8-10.2); CARBON DIOXIDE LEVEL 19 MEQ/L (21-32); CHLORIDE LEVEL 122 MEQ/L (98-107); CREATININE FOR GFR 1.85 MG/DL (0.55-1.30); GLOMERULAR FILTRATION RATE 28.7 (>39); GLUCOSE, FASTING 146 MG/DL (70-100); MAGNESIUM LEVEL 2.3 MG/DL (1.8-2.4); POTASSIUM SERUM 3.2 MEQ/L (3.5-5.1); SODIUM LEVEL 150 MEQ/L (136-145)
[2018-03-19] MEDS: D5W 1,000 ML IV ×2 (10:56→21:08)
[2018-03-19] MEDS: POTASSIUM CHLORIDE 10 MEQ SR TABLET PO (11:28)
[2018-03-19] MEDS ORDERED: ARIPiprazole 2 MG TAB PO (21:00)
[2018-03-19] MEDS: SIMVASTATIN 20 MG TAB PO (21:58)
[2018-03-19] MEDS: LATANOPROST 0.005% OPHTH SOLN 2.5 ML OU (21:59)
[2018-03-19] MEDS: LOSARTAN 25 MG TAB PO (21:59)
[2018-03-20] MEDS: LORazepam 0.5 MG TAB PO ×3 (01:51→20:23)
[2018-03-20] MEDS: ACETAMINOPHEN TAB 650MG DOSE (2X325MG) PO ×3 (05:25→20:24)
[2018-03-20 06:22] LABS: HEMATOCRIT 30.2 % (36.0-47.0); HEMOGLOBIN 10.5 g/dl (12.0-15.5); MEAN CORPUSCULAR HEMOGLOBIN 34.1 pg (27.0-33.0); MEAN CORPUSCULAR HGB CONC 34.8 g/dl (32.0-36.5); MEAN CORPUSCULAR VOLUME 98.1 fl (80.0-96.0); PLATELET COUNT, AUTOMATED 374 10^3/uL (150-450); RED BLOOD COUNT 3.08 10^6/uL (4.00-5.40); RED CELL DISTRIBUTION WIDTH 11.7 % (11.5-14.5); WHITE BLOOD COUNT 13.9 10^3/uL (4.0-10.0)
[2018-03-20 08:19] LABS: ANION GAP 8 MEQ/L (8-16); BLOOD UREA NITROGEN 20 MG/DL (7-18); C REACTIVE PROTEIN QUANTITATIV 1.86 MG/DL (0.00-0.30); CALCIUM LEVEL 8.7 MG/DL (8.8-10.2); CARBON DIOXIDE LEVEL 17 MEQ/L (21-32); CHLORIDE LEVEL 123 MEQ/L (98-107); GLOMERULAR FILTRATION RATE 29.6 (>39); GLUCOSE, FASTING 121 MG/DL (70-100); POTASSIUM SERUM 3.5 MEQ/L (3.5-5.1); SODIUM LEVEL 148 MEQ/L (136-145)
[2018-03-20] MEDS: ASPIRIN 81 MG ENTERIC TAB PO (09:04)
[2018-03-20] MEDS: cefTRIAXone SOD 2 GM in D5W MINI-BAG PLUS 50 ML IV (09:04)
[2018-03-20] MEDS: LACTOBACILLUS ACIDOPHILUS CAP (BACID) PO ×2 (09:05→20:23)
[2018-03-20] MEDS: HEPARIN SOD (PORCINE) 5000 UNITS/ML VIAL SQ ×2 (09:05→20:24)
[2018-03-20] MEDS: D5W 1,000 ML IV (11:14)
[2018-03-20 14:33] LABS: ANION GAP 10 MEQ/L (8-16); BLOOD UREA NITROGEN 21 MG/DL (7-18); CALCIUM LEVEL 8.5 MG/DL (8.8-10.2); CARBON DIOXIDE LEVEL 17 MEQ/L (21-32); CHLORIDE LEVEL 122 MEQ/L (98-107); CREATININE FOR GFR 1.91 MG/DL (0.55-1.30); GLOMERULAR FILTRATION RATE 27.7 (>39); GLUCOSE, FASTING 122 MG/DL (70-100); MAGNESIUM LEVEL 2.1 MG/DL (1.8-2.4); POTASSIUM SERUM 3.5 MEQ/L (3.5-5.1); SODIUM LEVEL 149 MEQ/L (136-145)
[2018-03-20] MEDS: amLODIPine 5 MG TAB PO (15:04)
[2018-03-20] MEDS: SIMVASTATIN 20 MG TAB PO (20:23)
[2018-03-20] MEDS: LATANOPROST 0.005% OPHTH SOLN 2.5 ML OU (20:23)
[2018-03-21 06:24] LABS: BASO # 0.1 10^3/uL (0.0-0.2); BASO % 0.5 % (0.0-1.0); EOS # 0.2 10^3/uL (0.0-0.50); HEMATOCRIT 31.4 % (36.0-47.0); HEMOGLOBIN 10.8 g/dl (12.0-15.5); IMMATURE GRANULOCYTE % 1.3 % (0-3.0); LYMPH # 1.9 10^3/uL (1.5-4.5); LYMPH % 12.5 % (24.0-44.0); MEAN CORPUSCULAR HGB CONC 34.4 g/dl (32.0-36.5); MEAN CORPUSCULAR VOLUME 98.7 fl (80.0-96.0); MONO # 1.1 10^3/uL (0.0-0.8); MONO % 7.5 % (0.0-5.0); NEUTROPHILS # 11.7 10^3/uL (1.8-7.7); NEUTROPHILS % 77.2 % (36.0-66.0); PLATELET COUNT, AUTOMATED 443 10^3/uL (150-450); RED BLOOD COUNT 3.18 10^6/uL (4.00-5.40); RED CELL DISTRIBUTION WIDTH 11.9 % (11.5-14.5); WHITE BLOOD COUNT 15.1 10^3/uL (4.0-10.0)
[2018-03-21 06:54] LABS: ALBUMIN 2.6 GM/DL (3.2-5.2); ALBUMIN/GLOBULIN RATIO 0.62 (1.00-1.93); ALKALINE PHOSPHATASE 62 U/L (45-117); ALT/SGPT 52 U/L (12-78); ANION GAP 8 MEQ/L (8-16); AST/SGOT 29 U/L (7-37); BILIRUBIN,TOTAL 0.2 MG/DL (0.2-1.0); BLOOD UREA NITROGEN 20 MG/DL (7-18); C REACTIVE PROTEIN QUANTITATIV 1.53 MG/DL (0.00-0.30); CARBON DIOXIDE LEVEL 16 MEQ/L (21-32); CHLORIDE LEVEL 125 MEQ/L (98-107); CREATININE FOR GFR 1.91 MG/DL (0.55-1.30); GLOMERULAR FILTRATION RATE 27.7 (>39); GLUCOSE, FASTING 107 MG/DL (70-100); MAGNESIUM LEVEL 2.2 MG/DL (1.8-2.4); POTASSIUM SERUM 3.6 MEQ/L (3.5-5.1); SODIUM LEVEL 149 MEQ/L (136-145); TOTAL PROTEIN 6.8 GM/DL (6.4-8.2)
[2018-03-21] MEDS: HEPARIN SOD (PORCINE) 5000 UNITS/ML VIAL SQ ×2 (09:04→20:09)
[2018-03-21] MEDS: ASPIRIN 81 MG ENTERIC TAB PO (09:04)
[2018-03-21] MEDS: LACTOBACILLUS ACIDOPHILUS CAP (BACID) PO ×2 (09:04→20:09)
[2018-03-21] MEDS: LevoFLOXacin 500 MG TABLET PO (09:04)
[2018-03-21] MEDS: amLODIPine 5 MG TAB PO (09:05)
[2018-03-21 12:35] LABS: VENOUS BASE EXCESS -8.1 (-2.0-2.0); VENOUS HCO3 16.4 MEQ/L (23.0-27.0); VENOUS O2 SATURATION 78.9 % (60.0-80.0); VENOUS PARTIAL PRESSURE CO2 30.9 mmHg (38.0-50.0); VENOUS PARTIAL PRESSURE O2 43.5 mmHg (30.0-50.0); VENOUS PH 7.343 UNITS (7.330-7.430); VENOUS STANDARD HCO3 17.6 MEQ/L; VENOUS TOTAL CO2 17.4 MEQ/L (24.0-28.0)
[2018-03-21] MEDS: POTASSIUM CHLORIDE IV (16:42)
[2018-03-21] MEDS: SODIUM BICARBONATE IV (16:42)
[2018-03-21] MEDS: D5W IV (16:42)
[2018-03-21] MEDS: LORazepam 0.5 MG TAB PO (20:09)
[2018-03-21] MEDS: LATANOPROST 0.005% OPHTH SOLN 2.5 ML OU (20:09)
[2018-03-21] MEDS: SIMVASTATIN 20 MG TAB PO (20:09)
[2018-03-22] MEDS: POTASSIUM CHLORIDE IV ×3 (01:36→22:48)
[2018-03-22] MEDS: D5W IV ×3 (01:36→22:48)
[2018-03-22] MEDS: SODIUM BICARBONATE IV ×3 (01:36→22:48)
[2018-03-22] MEDS: LevoFLOXacin 250 MG TABLET PO (05:03)
[2018-03-22 06:18] LABS: BASO # 0.1 10^3/uL (0.0-0.2); BASO % 0.4 % (0.0-1.0); EOS # 0.2 10^3/uL (0.0-0.50); HEMATOCRIT 30.2 % (36.0-47.0); HEMOGLOBIN 10.6 g/dl (12.0-15.5); IMMATURE GRANULOCYTE % 1.4 % (0-3.0); LYMPH # 2.3 10^3/uL (1.5-4.5); LYMPH % 13.6 % (24.0-44.0); MEAN CORPUSCULAR HEMOGLOBIN 34.4 pg (27.0-33.0); MEAN CORPUSCULAR HGB CONC 35.1 g/dl (32.0-36.5); MEAN CORPUSCULAR VOLUME 98.1 fl (80.0-96.0); MONO # 1.3 10^3/uL (0.0-0.8); MONO % 7.4 % (0.0-5.0); NEUTROPHILS # 12.9 10^3/uL (1.8-7.7); NEUTROPHILS % 76.2 % (36.0-66.0); PLATELET COUNT, AUTOMATED 459 10^3/uL (150-450); RED BLOOD COUNT 3.08 10^6/uL (4.00-5.40); RED CELL DISTRIBUTION WIDTH 12.1 % (11.5-14.5); WHITE BLOOD COUNT 16.9 10^3/uL (4.0-10.0)
[2018-03-22 06:54] LABS: ALBUMIN 2.6 GM/DL (3.2-5.2); ALBUMIN/GLOBULIN RATIO 0.58 (1.00-1.93); ALKALINE PHOSPHATASE 62 U/L (45-117); ALT/SGPT 43 U/L (12-78); ANION GAP 9 MEQ/L (8-16); AST/SGOT 25 U/L (7-37); BILIRUBIN,TOTAL 0.2 MG/DL (0.2-1.0); BLOOD UREA NITROGEN 19 MG/DL (7-18); CALCIUM LEVEL 9.1 MG/DL (8.8-10.2); CARBON DIOXIDE LEVEL 18 MEQ/L (21-32); CHLORIDE LEVEL 120 MEQ/L (98-107); CREATININE FOR GFR 1.86 MG/DL (0.55-1.30); GLOMERULAR FILTRATION RATE 28.5 (>39); GLUCOSE, FASTING 129 MG/DL (70-100); MAGNESIUM LEVEL 2.2 MG/DL (1.8-2.4); POTASSIUM SERUM 3.9 MEQ/L (3.5-5.1); SODIUM LEVEL 147 MEQ/L (136-145); TOTAL PROTEIN 6.4 GM/DL (6.4-8.2); TOTAL PROTEIN 7.1 GM/DL (6.4-8.2)
[2018-03-22] MEDS: LACTOBACILLUS ACIDOPHILUS CAP (BACID) PO ×2 (08:34→19:33)
[2018-03-22] MEDS: ASPIRIN 81 MG ENTERIC TAB PO (08:34)
[2018-03-22] MEDS: amLODIPine 5 MG TAB PO (08:39)
[2018-03-22] MEDS: LORazepam 0.5 MG TAB PO ×2 (08:39→16:56)
[2018-03-22] MEDS: HEPARIN SOD (PORCINE) 5000 UNITS/ML VIAL SQ ×2 (08:42→19:33)
[2018-03-22 11:09] LABS: ALBUMIN 3.08 GM/DL (3.29-5.55); ALBUMIN % 48.2 % (55.8-66.1); ALPHA-1-GLOBULIN % 7.5 % (2.9-4.9); ALPHA-1-GLOBULINS 0.48 GM/DL (0.17-0.41); ALPHA-2-GLOBULINS 1.17 GM/DL (0.42-0.99); ALPHA-2-GLOBULINS % 18.3 % (7.1-11.8); BETA-1-GLOBULINS 0.34 GM/DL (0.28-0.60); BETA-1-GLOBULINS % 5.3 % (4.7-7.2); BETA-2-GLOBULINS 0.42 GM/DL (0.19-0.55); BETA-2-GLOBULINS % 6.5 % (3.2-6.5); GAMMA GLOBULIN % 14.2 % (11.1-18.8); GAMMA GLOBULINS 0.91 GM/DL (0.65-1.58)
[2018-03-22] MEDS: OXcarbazepine 150 MG TAB PO (13:46)
[2018-03-22] MEDS: ACETAMINOPHEN TAB 650MG DOSE (2X325MG) PO (16:56)
[2018-03-22] MEDS: LATANOPROST 0.005% OPHTH SOLN 2.5 ML OU (19:33)
[2018-03-22] MEDS: SIMVASTATIN 20 MG TAB PO (19:34)
[2018-03-22 22:35] LABS: APPEARANCE, URINE CLEAR (CLEAR); BACTERIA, URINE AUTO NEGATIVE (NEGATIVE); BILIRUBIN, URINE AUTO NEGATIVE (NEGATIVE); BLOOD, URINE BLOOD 1+ (NEGATIVE); COLOR, URINE STRAW (YELLOW); GLUCOSE, URINE (UA) AUTO NEGATIVE (NEGATIVE); KETONE, URINE AUTO NEGATIVE (NEGATIVE); LEUKOCYTE ESTERASE, URINE AUTO NEGATIVE (NEGATIVE); NITRITE, URINE AUTO NEGATIVE (NEGATIVE); PROTEIN, URINE AUTO 3+ mg/dL (NEGATIVE); RBC, URINE AUTO 1 /HPF (0-3); SPECIFIC GRAVITY URINE AUTO 1.005 (1.002-1.035); SQUAMOUS EPITHELIAL CELL UR AU 0 /HPF (0-6); TRANSITIONAL EPITHELIAL AUTO 3 /HPF; URINE TOTAL PROTEIN 223.9 MG/DL (0-12); UROBILINOGEN, URINE AUTO 0.2 mg/dL (0.0-2.0); WBC, URINE AUTO 1 /HPF (0-3)
[2018-03-23] MEDS: LevoFLOXacin 250 MG TABLET PO (05:18)
[2018-03-23] MEDS: ACETAMINOPHEN TAB 650MG DOSE (2X325MG) PO ×2 (05:21→21:43)
[2018-03-23] MEDS: LORazepam 0.5 MG TAB PO (05:36)
[2018-03-23 05:54] LABS: BASO # 0.1 10^3/uL (0.0-0.2); BASO % 0.4 % (0.0-1.0); EOS # 0.2 10^3/uL (0.0-0.50); EOS % 1.2 % (0.0-3.0); HEMATOCRIT 29.3 % (36.0-47.0); HEMOGLOBIN 10.3 g/dl (12.0-15.5); IMMATURE GRANULOCYTE % 1.1 % (0-3.0); LYMPH # 2.3 10^3/uL (1.5-4.5); LYMPH % 14.9 % (24.0-44.0); MEAN CORPUSCULAR HEMOGLOBIN 34.6 pg (27.0-33.0); MEAN CORPUSCULAR HGB CONC 35.2 g/dl (32.0-36.5); MEAN CORPUSCULAR VOLUME 98.3 fl (80.0-96.0); MONO # 1.1 10^3/uL (0.0-0.8); MONO % 7.2 % (0.0-5.0); NEUTROPHILS # 11.6 10^3/uL (1.8-7.7); NEUTROPHILS % 75.2 % (36.0-66.0); PLATELET COUNT, AUTOMATED 419 10^3/uL (150-450); RED BLOOD COUNT 2.98 10^6/uL (4.00-5.40); RED CELL DISTRIBUTION WIDTH 12.1 % (11.5-14.5); WHITE BLOOD COUNT 15.5 10^3/uL (4.0-10.0)
[2018-03-23 06:24] LABS: ALBUMIN 2.5 GM/DL (3.2-5.2); ALBUMIN/GLOBULIN RATIO 0.63 (1.00-1.93); ALKALINE PHOSPHATASE 57 U/L (45-117); ALT/SGPT 35 U/L (12-78); ANION GAP 9 MEQ/L (8-16); AST/SGOT 22 U/L (7-37); BILIRUBIN,TOTAL 0.2 MG/DL (0.2-1.0); BLOOD UREA NITROGEN 19 MG/DL (7-18); CALCIUM LEVEL 8.9 MG/DL (8.8-10.2); CARBON DIOXIDE LEVEL 23 MEQ/L (21-32); CHLORIDE LEVEL 114 MEQ/L (98-107); CREATININE FOR GFR 1.83 MG/DL (0.55-1.30); GLOMERULAR FILTRATION RATE 29.1 (>39); GLUCOSE, FASTING 106 MG/DL (70-100); SODIUM LEVEL 146 MEQ/L (136-145); TOTAL PROTEIN 6.5 GM/DL (6.4-8.2)
[2018-03-23] MEDS ORDERED: SODIUM BICARBONATE 50 MEQ in KCL 20MEQ IN D5W 1000ML 1,000 ML IV (08:00)
[2018-03-23] MEDS: LACTOBACILLUS ACIDOPHILUS CAP (BACID) PO ×2 (08:44→19:57)
[2018-03-23] MEDS: ASPIRIN 81 MG ENTERIC TAB PO (08:45)
[2018-03-23] MEDS: amLODIPine 10 MG TAB PO (08:45)
[2018-03-23] MEDS: OXcarbazepine 150 MG TAB PO (08:46)
[2018-03-23] MEDS: HEPARIN SOD (PORCINE) 5000 UNITS/ML VIAL SQ ×2 (09:07→19:58)
[2018-03-23] MEDS: KCL 20MEQ IN D5W 1000ML 1,000 ML IV ×2 (12:20→21:17)
[2018-03-23] MEDS: SIMVASTATIN 20 MG TAB PO (19:57)
[2018-03-23] MEDS: LATANOPROST 0.005% OPHTH SOLN 2.5 ML OU (19:58)
[2018-03-24 00:07] LABS: FREE KAPPA LIGHT CHAINS SERUM 48.9 mg/L (3.3-19.4); FREE LAMBDA LIGHT CHAINS SERUM 37.9 mg/L (5.7-26.3); KAPPA/LAMBDA RATIO SERUM 1.29 (0.26-1.65)
[2018-03-24] MEDS: LevoFLOXacin 250 MG TABLET PO (05:26)
[2018-03-24 06:02] LABS: BASO # 0.1 10^3/uL (0.0-0.2); BASO % 0.4 % (0.0-1.0); EOS # 0.3 10^3/uL (0.0-0.50); EOS % 1.8 % (0.0-3.0); HEMATOCRIT 32.1 % (36.0-47.0); LYMPH # 2.7 10^3/uL (1.5-4.5); LYMPH % 17.5 % (24.0-44.0); MEAN CORPUSCULAR HEMOGLOBIN 33.8 pg (27.0-33.0); MEAN CORPUSCULAR HGB CONC 34.3 g/dl (32.0-36.5); MEAN CORPUSCULAR VOLUME 98.8 fl (80.0-96.0); MONO # 1.2 10^3/uL (0.0-0.8); MONO % 7.4 % (0.0-5.0); NEUTROPHILS # 11.1 10^3/uL (1.8-7.7); NEUTROPHILS % 71.9 % (36.0-66.0); PLATELET COUNT, AUTOMATED 484 10^3/uL (150-450); RED BLOOD COUNT 3.25 10^6/uL (4.00-5.40); RED CELL DISTRIBUTION WIDTH 12.1 % (11.5-14.5); WHITE BLOOD COUNT 15.5 10^3/uL (4.0-10.0)
[2018-03-24 06:22] LABS: ALBUMIN 2.7 GM/DL (3.2-5.2); ALBUMIN/GLOBULIN RATIO 0.63 (1.00-1.93); ALKALINE PHOSPHATASE 64 U/L (45-117); ALT/SGPT 32 U/L (12-78); ANION GAP 9 MEQ/L (8-16); AST/SGOT 23 U/L (7-37); BILIRUBIN,TOTAL 0.3 MG/DL (0.2-1.0); BLOOD UREA NITROGEN 19 MG/DL (7-18); CALCIUM LEVEL 9.4 MG/DL (8.8-10.2); CARBON DIOXIDE LEVEL 22 MEQ/L (21-32); CHLORIDE LEVEL 114 MEQ/L (98-107); CREATININE FOR GFR 1.86 MG/DL (0.55-1.30); GLOMERULAR FILTRATION RATE 28.5 (>39); GLUCOSE, FASTING 123 MG/DL (70-100); MAGNESIUM LEVEL 2.1 MG/DL (1.8-2.4); POTASSIUM SERUM 4.1 MEQ/L (3.5-5.1); SODIUM LEVEL 145 MEQ/L (136-145)
[2018-03-24] MEDS: KCL 20MEQ IN D5W 1000ML 1,000 ML IV ×2 (07:16→23:35)
[2018-03-24] MEDS: LACTOBACILLUS ACIDOPHILUS CAP (BACID) PO ×2 (08:20→20:50)
[2018-03-24] MEDS: ASPIRIN 81 MG ENTERIC TAB PO (08:20)
[2018-03-24] MEDS: OXcarbazepine 150 MG TAB PO (08:21)
[2018-03-24] MEDS: amLODIPine 10 MG TAB PO (08:22)
[2018-03-24] MEDS: LORazepam 0.5 MG TAB PO ×2 (08:32→20:51)
[2018-03-24] MEDS: HEPARIN SOD (PORCINE) 5000 UNITS/ML VIAL SQ ×2 (08:34→20:50)
[2018-03-24 10:12] LABS: TOTAL PROTEIN,RANDOM URINE 158.1 MG/DL (0.0-12.0)
[2018-03-24 10:17] LABS: CREATININE,RANDOM URINE 23.9 MG/DL
[2018-03-24] MEDS: ACETAMINOPHEN TAB 650MG DOSE (2X325MG) PO (18:51)
[2018-03-24] MEDS: SIMVASTATIN 20 MG TAB PO (20:50)
[2018-03-24] MEDS: LATANOPROST 0.005% OPHTH SOLN 2.5 ML OU (20:51)
[2018-03-25] MEDS: LevoFLOXacin 250 MG TABLET PO (05:21)
[2018-03-25 06:26] LABS: BASO # 0.1 10^3/uL (0.0-0.2); BASO % 0.5 % (0.0-1.0); EOS # 0.2 10^3/uL (0.0-0.50); EOS % 1.3 % (0.0-3.0); HEMATOCRIT 33.7 % (36.0-47.0); HEMOGLOBIN 11.6 g/dl (12.0-15.5); IMMATURE GRANULOCYTE % 0.7 % (0-3.0); LYMPH # 2.2 10^3/uL (1.5-4.5); MEAN CORPUSCULAR HEMOGLOBIN 34.4 pg (27.0-33.0); MEAN CORPUSCULAR HGB CONC 34.4 g/dl (32.0-36.5); MONO % 7.1 % (0.0-5.0); NEUTROPHILS # 10.2 10^3/uL (1.8-7.7); NEUTROPHILS % 74.4 % (36.0-66.0); PLATELET COUNT, AUTOMATED 474 10^3/uL (150-450); RED BLOOD COUNT 3.37 10^6/uL (4.00-5.40); RED CELL DISTRIBUTION WIDTH 12.1 % (11.5-14.5); WHITE BLOOD COUNT 13.7 10^3/uL (4.0-10.0)
[2018-03-25 06:41] LABS: ALBUMIN 2.8 GM/DL (3.2-5.2); ALBUMIN/GLOBULIN RATIO 0.61 (1.00-1.93); ALKALINE PHOSPHATASE 66 U/L (45-117); ALT/SGPT 34 U/L (12-78); ANION GAP 8 MEQ/L (8-16); AST/SGOT 22 U/L (7-37); BILIRUBIN,TOTAL 0.3 MG/DL (0.2-1.0); BLOOD UREA NITROGEN 24 MG/DL (7-18); CALCIUM LEVEL 9.1 MG/DL (8.8-10.2); CARBON DIOXIDE LEVEL 23 MEQ/L (21-32); CHLORIDE LEVEL 113 MEQ/L (98-107); CREATININE FOR GFR 1.98 MG/DL (0.55-1.30); GLOMERULAR FILTRATION RATE 26.5 (>39); GLUCOSE, FASTING 130 MG/DL (70-100); MAGNESIUM LEVEL 2.2 MG/DL (1.8-2.4); SODIUM LEVEL 144 MEQ/L (136-145); TOTAL PROTEIN 7.4 GM/DL (6.4-8.2)
[2018-03-25 08:11] LABS: KAPPA/LAMBDA RATIO URINE 8.81 (2.04-10.37)
[2018-03-25] MEDS: OXcarbazepine 150 MG TAB PO (09:27)
[2018-03-25] MEDS: LACTOBACILLUS ACIDOPHILUS CAP (BACID) PO ×2 (09:27→20:38)
[2018-03-25] MEDS: amLODIPine 10 MG TAB PO (09:28)
[2018-03-25] MEDS: ASPIRIN 81 MG ENTERIC TAB PO (09:28)
[2018-03-25] MEDS: HEPARIN SOD (PORCINE) 5000 UNITS/ML VIAL SQ ×2 (09:29→20:38)
[2018-03-25 11:18] LABS: IMMUNOTYPING SERUM IGM ABNORMAL (NORMAL); IMMUNOTYPING SERUM KAPPA ABNORMAL (NORMAL)
[2018-03-25 13:09] LABS: URINE VOLUME RANDOM ML
[2018-03-25 13:10] LABS: UPEP INTERPRETATION NO M-SPIKE NOTED
[2018-03-25 14:14] LABS: ANTINUCLEAR ANTIBODIES DIRECT Negative (Negative)
[2018-03-25] MEDS: LATANOPROST 0.005% OPHTH SOLN 2.5 ML OU (20:38)
[2018-03-25] MEDS: SIMVASTATIN 20 MG TAB PO (20:38)
[2018-03-26 00:07] LABS: ANA (HEP2) Negative (.)
[2018-03-26] MEDS: LevoFLOXacin 250 MG TABLET PO (05:18)
[2018-03-26 05:36] LABS: BASO # 0.1 10^3/uL (0.0-0.2); BASO % 0.4 % (0.0-1.0); EOS # 0.2 10^3/uL (0.0-0.50); EOS % 1.6 % (0.0-3.0); HEMATOCRIT 32.9 % (36.0-47.0); HEMOGLOBIN 11.3 g/dl (12.0-15.5); IMMATURE GRANULOCYTE % 0.5 % (0-3.0); LYMPH # 2.1 10^3/uL (1.5-4.5); MEAN CORPUSCULAR HEMOGLOBIN 34.2 pg (27.0-33.0); MEAN CORPUSCULAR HGB CONC 34.3 g/dl (32.0-36.5); MEAN CORPUSCULAR VOLUME 99.7 fl (80.0-96.0); MONO # 0.9 10^3/uL (0.0-0.8); MONO % 6.8 % (0.0-5.0); NEUTROPHILS # 10.4 10^3/uL (1.8-7.7); NEUTROPHILS % 75.7 % (36.0-66.0); PLATELET COUNT, AUTOMATED 455 10^3/uL (150-450); RED CELL DISTRIBUTION WIDTH 12.1 % (11.5-14.5); WHITE BLOOD COUNT 13.8 10^3/uL (4.0-10.0)
[2018-03-26 05:59] LABS: ALBUMIN 2.7 GM/DL (3.2-5.2); ALBUMIN/GLOBULIN RATIO 0.64 (1.00-1.93); ALKALINE PHOSPHATASE 65 U/L (45-117); ALT/SGPT 31 U/L (12-78); ANION GAP 8 MEQ/L (8-16); AST/SGOT 24 U/L (7-37); BILIRUBIN,TOTAL 0.3 MG/DL (0.2-1.0); BLOOD UREA NITROGEN 29 MG/DL (7-18); CALCIUM LEVEL 9.2 MG/DL (8.8-10.2); CARBON DIOXIDE LEVEL 21 MEQ/L (21-32); CHLORIDE LEVEL 116 MEQ/L (98-107); CREATININE FOR GFR 2.11 MG/DL (0.55-1.30); GLOMERULAR FILTRATION RATE 24.7 (>39); GLUCOSE, FASTING 108 MG/DL (70-100); MAGNESIUM LEVEL 2.3 MG/DL (1.8-2.4); POTASSIUM SERUM 4.2 MEQ/L (3.5-5.1); SODIUM LEVEL 145 MEQ/L (136-145); TOTAL PROTEIN 6.9 GM/DL (6.4-8.2)
[2018-03-26] MEDS: OXcarbazepine 150 MG TAB PO (09:40)
[2018-03-26] MEDS: ASPIRIN 81 MG ENTERIC TAB PO (09:41)
[2018-03-26] MEDS: amLODIPine 10 MG TAB PO (09:41)
[2018-03-26] MEDS: LACTOBACILLUS ACIDOPHILUS CAP (BACID) PO ×2 (09:41→20:49)
[2018-03-26] MEDS: HEPARIN SOD (PORCINE) 5000 UNITS/ML VIAL SQ ×2 (10:00→20:49)
[2018-03-26 19:04] LABS: IMMUNOGLOBULIN G 829 MG/DL (681-1648); IMMUNOGLOBULIN M 64.6 MG/DL (40-230)
[2018-03-26 19:10] LABS: ERYTHROCYTE SEDIMENTATION RATE 106 mm/hr (0-30)
[2018-03-26] MEDS: LORazepam 0.5 MG TAB PO (20:49)
[2018-03-26] MEDS: SIMVASTATIN 20 MG TAB PO (20:49)
[2018-03-26] MEDS: LATANOPROST 0.005% OPHTH SOLN 2.5 ML OU (20:49)
[2018-03-26] MEDS: ACETAMINOPHEN TAB 650MG DOSE (2X325MG) PO (20:49)
[2018-03-27] MEDS: LevoFLOXacin 250 MG TABLET PO (06:02)
[2018-03-27 06:16] LABS: BASO # 0.1 10^3/uL (0.0-0.2); BASO % 0.8 % (0.0-1.0); EOS # 0.2 10^3/uL (0.0-0.50); EOS % 1.1 % (0.0-3.0); HEMATOCRIT 35.2 % (36.0-47.0); HEMOGLOBIN 11.9 g/dl (12.0-15.5); IMMATURE GRANULOCYTE % 0.5 % (0-3.0); LYMPH # 1.8 10^3/uL (1.5-4.5); MEAN CORPUSCULAR HEMOGLOBIN 34.4 pg (27.0-33.0); MEAN CORPUSCULAR HGB CONC 33.8 g/dl (32.0-36.5); MEAN CORPUSCULAR VOLUME 101.7 fl (80.0-96.0); MONO % 6.8 % (0.0-5.0); NEUTROPHILS # 10.9 10^3/uL (1.8-7.7); NEUTROPHILS % 77.8 % (36.0-66.0); PLATELET COUNT, AUTOMATED 423 10^3/uL (150-450); RED BLOOD COUNT 3.46 10^6/uL (4.00-5.40); RED CELL DISTRIBUTION WIDTH 12.1 % (11.5-14.5)
[2018-03-27 06:42] LABS: ALKALINE PHOSPHATASE 65 U/L (45-117); ALT/SGPT 31 U/L (12-78); ANION GAP 9 MEQ/L (8-16); AST/SGOT 21 U/L (7-37); BLOOD UREA NITROGEN 33 MG/DL (7-18); CALCIUM LEVEL 9.3 MG/DL (8.8-10.2); CARBON DIOXIDE LEVEL 20 MEQ/L (21-32); CHLORIDE LEVEL 116 MEQ/L (98-107); CREATININE FOR GFR 2.09 MG/DL (0.55-1.30); GLOMERULAR FILTRATION RATE 24.9 (>39); GLUCOSE, FASTING 110 MG/DL (70-100); POTASSIUM SERUM 3.9 MEQ/L (3.5-5.1); SODIUM LEVEL 145 MEQ/L (136-145)
[2018-03-27 06:43] LABS: ALBUMIN 2.7 GM/DL (3.2-5.2); BILIRUBIN,TOTAL 0.2 MG/DL (0.2-1.0); MAGNESIUM LEVEL 2.3 MG/DL (1.8-2.4); TOTAL PROTEIN 7.2 GM/DL (6.4-8.2)
[2018-03-27] MEDS: LACTOBACILLUS ACIDOPHILUS CAP (BACID) PO ×2 (09:22→20:04)
[2018-03-27] MEDS: ASPIRIN 81 MG ENTERIC TAB PO (09:23)
[2018-03-27] MEDS: OXcarbazepine 150 MG TAB PO (09:23)
[2018-03-27] MEDS: HEPARIN SOD (PORCINE) 5000 UNITS/ML VIAL SQ ×2 (09:23→20:05)
[2018-03-27] MEDS: amLODIPine 10 MG TAB PO (09:23)
[2018-03-27] MEDS: SODIUM BICARBONATE 325 MG TAB PO ×2 (10:36→20:04)
[2018-03-27 16:11] LABS: BEDSIDE GLUCOSE 124 MG/DL (83-110)
[2018-03-27] MEDS: LATANOPROST 0.005% OPHTH SOLN 2.5 ML OU (20:05)
[2018-03-27] MEDS: SIMVASTATIN 20 MG TAB PO (20:05)
[2018-03-27] MEDS: CARVedilol 3.125 MG TAB PO (20:46)
[2018-03-28] MEDS: LORazepam 0.5 MG TAB PO ×3 (00:27→12:39)
[2018-03-28] MEDS ORDERED: LORazepam 2 MG/ML VIAL (J2060) IV (07:00)
[2018-03-28] MEDS: LACTOBACILLUS ACIDOPHILUS CAP (BACID) PO (09:06)
[2018-03-28] MEDS: CARVedilol 3.125 MG TAB PO (09:06)
[2018-03-28] MEDS: amLODIPine 10 MG TAB PO (09:06)
[2018-03-28] MEDS: ASPIRIN 81 MG ENTERIC TAB PO (09:06)
[2018-03-28] MEDS: SODIUM BICARBONATE 325 MG TAB PO (09:06)
[2018-03-28] MEDS: OXcarbazepine 150 MG TAB PO (09:06)
[2018-03-28] MEDS: HEPARIN SOD (PORCINE) 5000 UNITS/ML VIAL SQ (09:07)
[2018-03-28 11:10] LABS: ALBUMIN 2.7 GM/DL (3.2-5.2); ANION GAP 7 MEQ/L (8-16); BLOOD UREA NITROGEN 34 MG/DL (7-18); CALCIUM LEVEL 8.4 MG/DL (8.8-10.2); CARBON DIOXIDE LEVEL 24 MEQ/L (21-32); CHLORIDE LEVEL 115 MEQ/L (98-107); CREATININE FOR GFR 2.06 MG/DL (0.55-1.30); GLOMERULAR FILTRATION RATE 25.3 (>39); GLUCOSE, FASTING 124 MG/DL (70-100); PHOSPHORUS LEVEL 4.1 MG/DL (2.5-4.9); POTASSIUM SERUM 3.8 MEQ/L (3.5-5.1); SODIUM LEVEL 146 MEQ/L (136-145)
[2018-03-28 14:34] LABS: TOTAL VOLUME, URINE 700 ML
[2018-03-28 15:13] LABS: CREATININE 24 HOUR, URINE 365.4 MG/24HR (600-1800); CREATININE, URINE 52.2 MG/DL; TOTAL PROTEIN 24 HOUR URINE 1645.7 MG/24HR (50-150); URINE TOTAL PROTEIN 235.1 MG/DL (0-12)
[2018-03-30 00:09] LABS: BETA 2 MICROGLOBULIN 4.8 mg/L (0.6-2.4)
== END 2018-03-28 14:30 | DRG 690 ==
LOC: M PCU 21:05 → M MS5PR 03-16 15:25
DX: N39.0 Urinary tract infection, site not specified (principal); R78.81 Bacteremia; E87.0 Hyperosmolality and hypernatremia; E87.2 Acidosis; N17.9 Acute kidney failure, unspecified; F31.2 Bipolar disorder, current episode manic severe with psychotic features; R94.5 Abnormal results of liver function studies; B96.1 Klebsiella pneumoniae [K. pneumoniae] as the cause of diseases classified elsewhere; R80.9 Proteinuria, unspecified; N18.3 Chronic kidney disease, stage 3 (moderate); R74.0 Nonspecific elevation of levels of transaminase and lactic acid dehydrogenase [LDH]; E11.9 Type 2 diabetes mellitus without complications; E87.6 Hypokalemia; I12.9 Hypertensive chronic kidney disease with stage 1 through stage 4 chronic kidney disease, or unspecified chronic kidney disease; R19.7 Diarrhea, unspecified; E78.00 Pure hypercholesterolemia, unspecified; Z88.8 Allergy status to other drugs, medicaments and biological substances; Z79.82 Long term (current) use of aspirin; Z79.899 Other long term (current) drug therapy

== ENCOUNTER 2018-03-28 14:40 | Inpatient (IN) | payer MEDICARE, OTHER ==
[2018-03-28] MEDS: SODIUM BICARBONATE 325 MG TAB PO (20:48)
[2018-03-28] MEDS: LATANOPROST 0.005% OPHTH SOLN 2.5 ML OU (20:48)
[2018-03-28] MEDS: SIMVASTATIN 20 MG TAB PO (20:48)
[2018-03-28] MEDS: CARVedilol 3.125 MG TAB PO (20:48)
[2018-03-28] MEDS: traZODone 50 MG TAB PO (22:56)
[2018-03-29] MEDS: HALOPERIDOL 5 MG TAB PO (01:55)
[2018-03-29] MEDS: LORazepam 1 MG TAB PO (01:55)
[2018-03-29] MEDS: OXcarbazepine 150 MG TAB PO ×2 (08:34→21:02)
[2018-03-29] MEDS: ASPIRIN 81 MG ENTERIC TAB PO (08:34)
[2018-03-29] MEDS: amLODIPine 10 MG TAB PO (08:34)
[2018-03-29] MEDS: CARVedilol 3.125 MG TAB PO ×2 (08:35→21:02)
[2018-03-29] MEDS: SODIUM BICARBONATE 325 MG TAB PO ×2 (08:35→21:01)
[2018-03-29] MEDS ORDERED: PILL CRUSHER/CUTTER 1 EACH XX (17:15)
[2018-03-29] MEDS ORDERED: ARIPiprazole 10 MG TAB PO (21:00)
[2018-03-29] MEDS: traZODone 50 MG TAB PO (21:01)
[2018-03-29] MEDS: SIMVASTATIN 20 MG TAB PO (21:01)
[2018-03-29] MEDS: LACTOBACILLUS ACIDOPHILUS CAP (BACID) PO (21:02)
[2018-03-29] MEDS: LATANOPROST 0.005% OPHTH SOLN 2.5 ML OU (21:02)
[2018-03-30] MEDS: ACETAMINOPHEN TAB 650MG DOSE (2X325MG) PO ×2 (04:41→21:45)
[2018-03-30 07:03] LABS: BASO # 0.1 10^3/uL (0.0-0.2); BASO % 0.8 % (0.0-1.0); EOS # 0.2 10^3/uL (0.0-0.50); EOS % 2.3 % (0.0-3.0); HEMOGLOBIN 11.1 g/dl (12.0-15.5); IMMATURE GRANULOCYTE % 0.3 % (0-3.0); LYMPH # 1.6 10^3/uL (1.5-4.5); LYMPH % 17.5 % (24.0-44.0); MEAN CORPUSCULAR HEMOGLOBIN 34.3 pg (27.0-33.0); MEAN CORPUSCULAR HGB CONC 34.7 g/dl (32.0-36.5); MEAN CORPUSCULAR VOLUME 98.8 fl (80.0-96.0); MONO # 0.8 10^3/uL (0.0-0.8); MONO % 9.2 % (0.0-5.0); NEUTROPHILS # 6.3 10^3/uL (1.8-7.7); NEUTROPHILS % 69.9 % (36.0-66.0); PLATELET COUNT, AUTOMATED 341 10^3/uL (150-450); RED BLOOD COUNT 3.24 10^6/uL (4.00-5.40); RED CELL DISTRIBUTION WIDTH 12.2 % (11.5-14.5); WHITE BLOOD COUNT 9.1 10^3/uL (4.0-10.0)
[2018-03-30 07:28] LABS: ALBUMIN 3.1 GM/DL (3.2-5.2); ANION GAP 6 MEQ/L (8-16); BLOOD UREA NITROGEN 39 MG/DL (7-18); CARBON DIOXIDE LEVEL 22 MEQ/L (21-32); CHLORIDE LEVEL 116 MEQ/L (98-107); CREATININE FOR GFR 2.19 MG/DL (0.55-1.30); GLOMERULAR FILTRATION RATE 23.6 (>39); GLUCOSE, FASTING 105 MG/DL (70-100); PHOSPHORUS LEVEL 4.9 MG/DL (2.5-4.9); POTASSIUM SERUM 3.9 MEQ/L (3.5-5.1); SODIUM LEVEL 144 MEQ/L (136-145)
[2018-03-30] MEDS: ASPIRIN 81 MG ENTERIC TAB PO (08:10)
[2018-03-30] MEDS: LACTOBACILLUS ACIDOPHILUS CAP (BACID) PO ×2 (08:11→20:40)
[2018-03-30] MEDS: amLODIPine 10 MG TAB PO (08:11)
[2018-03-30] MEDS: SODIUM BICARBONATE 325 MG TAB PO ×2 (08:11→20:39)
[2018-03-30] MEDS: CARVedilol 3.125 MG TAB PO ×2 (08:11→20:39)
[2018-03-30] MEDS: OXcarbazepine 150 MG TAB PO ×2 (08:11→20:41)
[2018-03-30] MEDS: OLANZapine 5 MG TAB PO (15:45)
[2018-03-30 18:34] LABS: ALBUMIN 2.8 GM/DL (3.2-5.2); ALKALINE PHOSPHATASE 63 U/L (45-117); ALT/SGPT 29 U/L (12-78); ANION GAP 9 MEQ/L (8-16); AST/SGOT 21 U/L (7-37); BILIRUBIN,TOTAL 0.2 MG/DL (0.2-1.0); BLOOD UREA NITROGEN 41 MG/DL (7-18); CALCIUM LEVEL 8.8 MG/DL (8.8-10.2); CARBON DIOXIDE LEVEL 22 MEQ/L (21-32); CHLORIDE LEVEL 113 MEQ/L (98-107); CREATININE FOR GFR 2.29 MG/DL (0.55-1.30); GLOMERULAR FILTRATION RATE 22.4 (>39); GLUCOSE, FASTING 134 MG/DL (70-100); POTASSIUM SERUM 3.6 MEQ/L (3.5-5.1); SODIUM LEVEL 144 MEQ/L (136-145); TOTAL PROTEIN 5.9 GM/DL (6.4-8.2)
[2018-03-30] MEDS: SIMVASTATIN 20 MG TAB PO (20:41)
[2018-03-30] MEDS: LATANOPROST 0.005% OPHTH SOLN 2.5 ML OU (20:48)
[2018-03-30] MEDS ORDERED: QUEtiapine FUMARATE 25 MG TAB PO (21:00)
[2018-03-31] MEDS: ACETAMINOPHEN TAB 650MG DOSE (2X325MG) PO (05:44)
[2018-03-31] MEDS: OXcarbazepine 150 MG TAB PO ×2 (09:00→20:43)
[2018-03-31] MEDS: amLODIPine 10 MG TAB PO (09:52)
[2018-03-31] MEDS: CARVedilol 3.125 MG TAB PO ×2 (09:52→20:44)
[2018-03-31] MEDS: ASPIRIN 81 MG ENTERIC TAB PO (09:52)
[2018-03-31] MEDS: SODIUM BICARBONATE 325 MG TAB PO ×2 (09:52→20:43)
[2018-03-31] MEDS: OLANZapine 5 MG TAB PO ×2 (09:52→20:43)
[2018-03-31] MEDS: LACTOBACILLUS ACIDOPHILUS CAP (BACID) PO ×2 (09:53→20:43)
[2018-03-31] MEDS: SIMVASTATIN 20 MG TAB PO (20:43)
[2018-03-31] MEDS: LATANOPROST 0.005% OPHTH SOLN 2.5 ML OU (20:44)
[2018-04-01] MEDS: ACETAMINOPHEN TAB 650MG DOSE (2X325MG) PO ×2 (05:12→21:07)
[2018-04-01] MEDS: ASPIRIN 81 MG ENTERIC TAB PO (10:15)
[2018-04-01] MEDS: SODIUM BICARBONATE 325 MG TAB PO ×2 (10:15→21:06)
[2018-04-01] MEDS: amLODIPine 10 MG TAB PO (10:15)
[2018-04-01] MEDS: OLANZapine 5 MG TAB PO ×2 (10:15→21:06)
[2018-04-01] MEDS: CARVedilol 3.125 MG TAB PO ×2 (10:15→21:07)
[2018-04-01] MEDS: LACTOBACILLUS ACIDOPHILUS CAP (BACID) PO ×2 (10:15→21:06)
[2018-04-01] MEDS: OXcarbazepine 150 MG TAB PO ×2 (10:15→21:06)
[2018-04-01 14:13] LABS: ALBUMIN 3.3 GM/DL (3.2-5.2); ALBUMIN/GLOBULIN RATIO 1.03 (1.00-1.93); ALKALINE PHOSPHATASE 64 U/L (45-117); ALT/SGPT 32 U/L (12-78); ANION GAP 9 MEQ/L (8-16); AST/SGOT 29 U/L (7-37); BILIRUBIN,TOTAL 0.2 MG/DL (0.2-1.0); BLOOD UREA NITROGEN 42 MG/DL (7-18); CARBON DIOXIDE LEVEL 18 MEQ/L (21-32); CHLORIDE LEVEL 121 MEQ/L (98-107); GLOMERULAR FILTRATION RATE 23.5 (>39); GLUCOSE, FASTING 120 MG/DL (70-100); POTASSIUM SERUM 4.1 MEQ/L (3.5-5.1); SODIUM LEVEL 148 MEQ/L (136-145); TOTAL PROTEIN 6.5 GM/DL (6.4-8.2)
[2018-04-01] MEDS: SIMVASTATIN 20 MG TAB PO (21:05)
[2018-04-01] MEDS: LATANOPROST 0.005% OPHTH SOLN 2.5 ML OU (21:07)
[2018-04-02 07:16] LABS: ALBUMIN 3.2 GM/DL (3.2-5.2); ALKALINE PHOSPHATASE 66 U/L (45-117); ALT/SGPT 42 U/L (12-78); ANION GAP 7 MEQ/L (8-16); AST/SGOT 32 U/L (7-37); BILIRUBIN,TOTAL 0.3 MG/DL (0.2-1.0); BLOOD UREA NITROGEN 42 MG/DL (7-18); CALCIUM LEVEL 9.1 MG/DL (8.8-10.2); CARBON DIOXIDE LEVEL 21 MEQ/L (21-32); CHLORIDE LEVEL 119 MEQ/L (98-107); CREATININE FOR GFR 2.15 MG/DL (0.55-1.30); GLOMERULAR FILTRATION RATE 24.1 (>39); GLUCOSE, FASTING 108 MG/DL (70-100); PHOSPHORUS LEVEL 3.7 MG/DL (2.5-4.9); POTASSIUM SERUM 4.3 MEQ/L (3.5-5.1); SODIUM LEVEL 147 MEQ/L (136-145); TOTAL PROTEIN 7.2 GM/DL (6.4-8.2)
[2018-04-02] MEDS: amLODIPine 10 MG TAB PO (08:14)
[2018-04-02] MEDS: CARVedilol 3.125 MG TAB PO ×2 (08:14→21:00)
[2018-04-02] MEDS: SODIUM BICARBONATE 325 MG TAB PO ×2 (08:14→21:45)
[2018-04-02] MEDS: OXcarbazepine 150 MG TAB PO ×2 (08:14→21:45)
[2018-04-02] MEDS: LACTOBACILLUS ACIDOPHILUS CAP (BACID) PO ×2 (08:14→21:45)
[2018-04-02] MEDS: ASPIRIN 81 MG ENTERIC TAB PO (08:14)
[2018-04-02] MEDS: LATANOPROST 0.005% OPHTH SOLN 2.5 ML OU (21:44)
[2018-04-02] MEDS: SIMVASTATIN 20 MG TAB PO (21:45)
[2018-04-02] MEDS: ARIPiprazole 10 MG TAB PO (21:45)
[2018-04-02] MEDS: ACETAMINOPHEN TAB 650MG DOSE (2X325MG) PO (23:55)
[2018-04-03 07:51] LABS: ALBUMIN 3.3 GM/DL (3.2-5.2); ALKALINE PHOSPHATASE 70 U/L (45-117); ALT/SGPT 41 U/L (12-78); ANION GAP 9 MEQ/L (8-16); AST/SGOT 32 U/L (7-37); BILIRUBIN,TOTAL 0.3 MG/DL (0.2-1.0); BLOOD UREA NITROGEN 39 MG/DL (7-18); CALCIUM LEVEL 9.1 MG/DL (8.8-10.2); CARBON DIOXIDE LEVEL 22 MEQ/L (21-32); CHLORIDE LEVEL 116 MEQ/L (98-107); GLOMERULAR FILTRATION RATE 27.8 (>39); GLUCOSE, FASTING 113 MG/DL (70-100); POTASSIUM SERUM 4.4 MEQ/L (3.5-5.1); SODIUM LEVEL 147 MEQ/L (136-145); TOTAL PROTEIN 6.6 GM/DL (6.4-8.2)
[2018-04-03] MEDS: amLODIPine 10 MG TAB PO (09:06)
[2018-04-03] MEDS: LACTOBACILLUS ACIDOPHILUS CAP (BACID) PO ×2 (09:06→22:27)
[2018-04-03] MEDS: ARIPiprazole 10 MG TAB PO ×2 (09:06→22:27)
[2018-04-03] MEDS: OXcarbazepine 150 MG TAB PO ×2 (09:06→22:27)
[2018-04-03] MEDS: CARVedilol 3.125 MG TAB PO ×2 (09:06→22:27)
[2018-04-03] MEDS: ASPIRIN 81 MG ENTERIC TAB PO (09:06)
[2018-04-03] MEDS: SODIUM BICARBONATE 325 MG TAB PO ×2 (09:06→22:27)
[2018-04-03] MEDS: OLANZapine 5 MG TAB PO (11:38)
[2018-04-03] MEDS: LATANOPROST 0.005% OPHTH SOLN 2.5 ML OU (22:26)
[2018-04-03] MEDS: SIMVASTATIN 20 MG TAB PO (22:27)
[2018-04-04 07:08] LABS: ALBUMIN 3.2 GM/DL (3.2-5.2); ALKALINE PHOSPHATASE 66 U/L (45-117); ALT/SGPT 34 U/L (12-78); ANION GAP 6 MEQ/L (8-16); AST/SGOT 27 U/L (7-37); BILIRUBIN,TOTAL 0.3 MG/DL (0.2-1.0); BLOOD UREA NITROGEN 38 MG/DL (7-18); CARBON DIOXIDE LEVEL 24 MEQ/L (21-32); CHLORIDE LEVEL 117 MEQ/L (98-107); CREATININE FOR GFR 2.08 MG/DL (0.55-1.30); GLOMERULAR FILTRATION RATE 25.1 (>39); GLUCOSE, FASTING 106 MG/DL (70-100); POTASSIUM SERUM 4.2 MEQ/L (3.5-5.1); SODIUM LEVEL 147 MEQ/L (136-145); TOTAL PROTEIN 6.4 GM/DL (6.4-8.2)
[2018-04-04] MEDS: ARIPiprazole 10 MG TAB PO ×3 (08:06→22:10)
[2018-04-04] MEDS: SODIUM BICARBONATE 325 MG TAB PO (08:06)
[2018-04-04] MEDS: CARVedilol 3.125 MG TAB PO ×3 (08:06→22:10)
[2018-04-04] MEDS: OXcarbazepine 150 MG TAB PO ×3 (08:06→22:12)
[2018-04-04] MEDS: LACTOBACILLUS ACIDOPHILUS CAP (BACID) PO ×3 (08:06→22:10)
[2018-04-04] MEDS: ASPIRIN 81 MG ENTERIC TAB PO (08:06)
[2018-04-04] MEDS: amLODIPine 10 MG TAB PO (08:06)
[2018-04-04] MEDS: LATANOPROST 0.005% OPHTH SOLN 2.5 ML OU ×2 (21:00→22:13)
[2018-04-04] MEDS: SIMVASTATIN 20 MG TAB PO ×2 (21:00→22:12)
[2018-04-04] MEDS: ACETAMINOPHEN TAB 650MG DOSE (2X325MG) PO (23:56)
[2018-04-05] MEDS: CARVedilol 3.125 MG TAB PO ×2 (08:50→21:07)
[2018-04-05] MEDS: ARIPiprazole 10 MG TAB PO ×2 (08:50→21:07)
[2018-04-05] MEDS: LACTOBACILLUS ACIDOPHILUS CAP (BACID) PO ×2 (08:50→21:07)
[2018-04-05] MEDS: amLODIPine 10 MG TAB PO (08:50)
[2018-04-05] MEDS: OXcarbazepine 150 MG TAB PO ×2 (08:50→21:07)
[2018-04-05] MEDS: ASPIRIN 81 MG ENTERIC TAB PO (08:50)
[2018-04-05] MEDS: SIMVASTATIN 20 MG TAB PO (21:07)
[2018-04-05] MEDS: LATANOPROST 0.005% OPHTH SOLN 2.5 ML OU (21:07)
[2018-04-06] MEDS: ACETAMINOPHEN TAB 650MG DOSE (2X325MG) PO (00:27)
[2018-04-06] MEDS: OLANZapine 5 MG TAB PO (00:27)
[2018-04-06 06:53] LABS: HEMATOCRIT 32.2 % (36.0-47.0); HEMOGLOBIN 10.9 g/dl (12.0-15.5); MEAN CORPUSCULAR HEMOGLOBIN 34.2 pg (27.0-33.0); MEAN CORPUSCULAR HGB CONC 33.9 g/dl (32.0-36.5); MEAN CORPUSCULAR VOLUME 100.9 fl (80.0-96.0); PLATELET COUNT, AUTOMATED 244 10^3/uL (150-450); RED BLOOD COUNT 3.19 10^6/uL (4.00-5.40); RED CELL DISTRIBUTION WIDTH 12.4 % (11.5-14.5); WHITE BLOOD COUNT 8.9 10^3/uL (4.0-10.0)
[2018-04-06 07:18] LABS: ALBUMIN 3.3 GM/DL (3.2-5.2); ANION GAP 7 MEQ/L (8-16); BLOOD UREA NITROGEN 39 MG/DL (7-18); CALCIUM LEVEL 8.9 MG/DL (8.8-10.2); CARBON DIOXIDE LEVEL 22 MEQ/L (21-32); CHLORIDE LEVEL 116 MEQ/L (98-107); CREATININE FOR GFR 1.92 MG/DL (0.55-1.30); GLOMERULAR FILTRATION RATE 27.5 (>39); GLUCOSE, FASTING 107 MG/DL (70-100); PHOSPHORUS LEVEL 3.9 MG/DL (2.5-4.9); POTASSIUM SERUM 4.5 MEQ/L (3.5-5.1); SODIUM LEVEL 145 MEQ/L (136-145)
[2018-04-06] MEDS: ASPIRIN 81 MG ENTERIC TAB PO (09:06)
[2018-04-06] MEDS: amLODIPine 10 MG TAB PO (09:07)
[2018-04-06] MEDS: CARVedilol 3.125 MG TAB PO ×2 (09:07→20:24)
[2018-04-06] MEDS: ARIPiprazole 15 MG TAB (AbiLIFY) PO (09:07)
[2018-04-06] MEDS: LACTOBACILLUS ACIDOPHILUS CAP (BACID) PO ×2 (09:07→20:23)
[2018-04-06] MEDS: OXcarbazepine 150 MG TAB PO ×2 (09:07→20:23)
[2018-04-06] MEDS: MAGNESIUM CITRATE 300 ML BTL PO (11:13)
[2018-04-06] MEDS: OLANZapine ORAL DISINTEGRATING TAB 5MG PO ×2 (13:18→20:25)
[2018-04-06] MEDS: SIMVASTATIN 20 MG TAB PO (20:23)
[2018-04-06] MEDS: ARIPiprazole 10 MG TAB PO (20:23)
[2018-04-06] MEDS: LATANOPROST 0.005% OPHTH SOLN 2.5 ML OU (20:25)
[2018-04-07 00:07] LABS: OXCARBAZEPINE 14 ug/mL (10-35)
[2018-04-07] MEDS: ACETAMINOPHEN TAB 650MG DOSE (2X325MG) PO (00:19)
[2018-04-07] MEDS: ARIPiprazole 15 MG TAB (AbiLIFY) PO (09:34)
[2018-04-07] MEDS: LACTOBACILLUS ACIDOPHILUS CAP (BACID) PO ×2 (09:34→21:27)
[2018-04-07] MEDS: ASPIRIN 81 MG ENTERIC TAB PO (09:34)
[2018-04-07] MEDS: OXcarbazepine 150 MG TAB PO ×2 (09:35→21:28)
[2018-04-07] MEDS: amLODIPine 10 MG TAB PO (09:35)
[2018-04-07] MEDS: CARVedilol 3.125 MG TAB PO ×2 (09:35→21:28)
[2018-04-07] MEDS: SIMVASTATIN 20 MG TAB PO (21:28)
[2018-04-07] MEDS: ARIPiprazole 10 MG TAB PO (21:28)
[2018-04-07] MEDS: LATANOPROST 0.005% OPHTH SOLN 2.5 ML OU (21:30)
[2018-04-08] MEDS: OLANZapine ORAL DISINTEGRATING TAB 5MG PO (03:46)
[2018-04-08] MEDS: ARIPiprazole 15 MG TAB (AbiLIFY) PO (08:28)
[2018-04-08] MEDS: OXcarbazepine 150 MG TAB PO ×2 (08:28→21:00)
[2018-04-08] MEDS: amLODIPine 10 MG TAB PO (08:28)
[2018-04-08] MEDS: ASPIRIN 81 MG ENTERIC TAB PO (08:28)
[2018-04-08] MEDS: LACTOBACILLUS ACIDOPHILUS CAP (BACID) PO ×2 (08:29→21:00)
[2018-04-08] MEDS: CARVedilol 3.125 MG TAB PO ×2 (08:29→21:00)
[2018-04-08] MEDS: PERPHENAZINE 2 MG TAB PO ×2 (16:00→21:00)
[2018-04-08] MEDS: SIMVASTATIN 20 MG TAB PO (21:00)
[2018-04-08] MEDS: ARIPiprazole 10 MG TAB PO (21:00)
[2018-04-08] MEDS: ACETAMINOPHEN TAB 650MG DOSE (2X325MG) PO (21:22)
[2018-04-08] MEDS: LATANOPROST 0.005% OPHTH SOLN 2.5 ML OU (21:22)
[2018-04-09 07:42] LABS: ALBUMIN 3.3 GM/DL (3.2-5.2); ANION GAP 7 MEQ/L (8-16); BLOOD UREA NITROGEN 43 MG/DL (7-18); CALCIUM LEVEL 8.9 MG/DL (8.8-10.2); CARBON DIOXIDE LEVEL 23 MEQ/L (21-32); CHLORIDE LEVEL 115 MEQ/L (98-107); CREATININE FOR GFR 2.04 MG/DL (0.55-1.30); GLOMERULAR FILTRATION RATE 25.6 (>39); GLUCOSE, FASTING 97 MG/DL (70-100); PHOSPHORUS LEVEL 4.3 MG/DL (2.5-4.9); POTASSIUM SERUM 4.4 MEQ/L (3.5-5.1); SODIUM LEVEL 145 MEQ/L (136-145)
[2018-04-09] MEDS: amLODIPine 10 MG TAB PO (08:16)
[2018-04-09] MEDS: LACTOBACILLUS ACIDOPHILUS CAP (BACID) PO ×2 (08:16→21:28)
[2018-04-09] MEDS: CARVedilol 3.125 MG TAB PO ×2 (08:16→21:28)
[2018-04-09] MEDS: ARIPiprazole 10 MG TAB PO ×2 (08:17→21:28)
[2018-04-09] MEDS: PERPHENAZINE 2 MG TAB PO ×3 (08:17→21:28)
[2018-04-09] MEDS: ASPIRIN 81 MG ENTERIC TAB PO (08:17)
[2018-04-09] MEDS: OXcarbazepine 150 MG TAB PO ×2 (08:17→21:28)
[2018-04-09] MEDS: LATANOPROST 0.005% OPHTH SOLN 2.5 ML OU (21:28)
[2018-04-09] MEDS: OLANZapine ORAL DISINTEGRATING TAB 5MG PO ×2 (21:28→23:35)
[2018-04-09] MEDS: SIMVASTATIN 20 MG TAB PO (21:28)
[2018-04-09] MEDS: QUEtiapine FUMARATE 25 MG TAB PO (23:35)
[2018-04-09] MEDS: PRAZOSIN 1 MG CAP PO (23:35)
[2018-04-10] MEDS: ARIPiprazole 10 MG TAB PO ×2 (08:41→21:34)
[2018-04-10] MEDS: OXcarbazepine 150 MG TAB PO ×2 (08:41→21:34)
[2018-04-10] MEDS: LACTOBACILLUS ACIDOPHILUS CAP (BACID) PO ×2 (08:42→21:34)
[2018-04-10] MEDS: ASPIRIN 81 MG ENTERIC TAB PO (08:42)
[2018-04-10] MEDS: amLODIPine 10 MG TAB PO (08:42)
[2018-04-10] MEDS: PERPHENAZINE 2 MG TAB PO ×3 (08:42→21:34)
[2018-04-10] MEDS: CARVedilol 3.125 MG TAB PO ×2 (08:42→21:35)
[2018-04-10] MEDS ORDERED: QUEtiapine FUMARATE 25 MG TAB PO (21:00)
[2018-04-10] MEDS ORDERED: PRAZOSIN 1 MG CAP PO (21:00)
[2018-04-10] MEDS: QUEtiapine FUMARATE 25 MG TAB PO (21:34)
[2018-04-10] MEDS: SIMVASTATIN 20 MG TAB PO (21:34)
[2018-04-10] MEDS: PRAZOSIN 1 MG CAP PO (21:35)
[2018-04-10] MEDS: LATANOPROST 0.005% OPHTH SOLN 2.5 ML OU (21:38)
[2018-04-11 07:19] LABS: ANION GAP 5 MEQ/L (8-16); BLOOD UREA NITROGEN 36 MG/DL (7-18); CALCIUM LEVEL 8.7 MG/DL (8.8-10.2); CARBON DIOXIDE LEVEL 25 MEQ/L (21-32); CHLORIDE LEVEL 115 MEQ/L (98-107); CREATININE FOR GFR 1.92 MG/DL (0.55-1.30); GLOMERULAR FILTRATION RATE 27.4 (>39); GLUCOSE, FASTING 101 MG/DL (70-100); POTASSIUM SERUM 4.1 MEQ/L (3.5-5.1); SODIUM LEVEL 145 MEQ/L (136-145)
[2018-04-11] MEDS: PERPHENAZINE 2 MG TAB PO ×3 (08:21→22:57)
[2018-04-11] MEDS: CARVedilol 3.125 MG TAB PO ×2 (08:21→22:56)
[2018-04-11] MEDS: OXcarbazepine 150 MG TAB PO ×2 (08:21→22:57)
[2018-04-11] MEDS: ARIPiprazole 10 MG TAB PO ×2 (08:21→22:56)
[2018-04-11] MEDS: LACTOBACILLUS ACIDOPHILUS CAP (BACID) PO ×2 (08:21→21:00)
[2018-04-11] MEDS: ASPIRIN 81 MG ENTERIC TAB PO (08:21)
[2018-04-11] MEDS: amLODIPine 10 MG TAB PO (08:21)
[2018-04-11] MEDS: OLANZapine ORAL DISINTEGRATING TAB 5MG PO (11:21)
[2018-04-11] MEDS: QUEtiapine FUMARATE 25 MG TAB PO (21:00)
[2018-04-11] MEDS: LATANOPROST 0.005% OPHTH SOLN 2.5 ML OU (22:56)
[2018-04-11] MEDS: PRAZOSIN 1 MG CAP PO (22:57)
[2018-04-11] MEDS: SIMVASTATIN 20 MG TAB PO (22:57)
[2018-04-12] MEDS: ACETAMINOPHEN TAB 650MG DOSE (2X325MG) PO ×2 (01:49→21:45)
[2018-04-12] MEDS: PALIPERIDONE 3 MG ER TAB (INVEGA) PO (09:00)
[2018-04-12] MEDS: ARIPiprazole 10 MG TAB PO (09:03)
[2018-04-12] MEDS: CARVedilol 3.125 MG TAB PO ×2 (09:03→21:42)
[2018-04-12] MEDS: ASPIRIN 81 MG ENTERIC TAB PO (09:03)
[2018-04-12] MEDS: OXcarbazepine 150 MG TAB PO ×2 (09:03→21:41)
[2018-04-12] MEDS: LACTOBACILLUS ACIDOPHILUS CAP (BACID) PO ×2 (09:03→21:42)
[2018-04-12] MEDS: PERPHENAZINE 2 MG TAB PO (09:03)
[2018-04-12] MEDS: amLODIPine 10 MG TAB PO (09:03)
[2018-04-12 09:19] LABS: HEMATOCRIT 28.6 % (36.0-47.0); HEMOGLOBIN 9.5 g/dl (12.0-15.5); MEAN CORPUSCULAR HEMOGLOBIN 33.9 pg (27.0-33.0); MEAN CORPUSCULAR HGB CONC 33.2 g/dl (32.0-36.5); MEAN CORPUSCULAR VOLUME 102.1 fl (80.0-96.0); PLATELET COUNT, AUTOMATED 166 10^3/uL (150-450)
[2018-04-12 09:40] LABS: ALBUMIN/GLOBULIN RATIO 1.03 (1.00-1.93); ALKALINE PHOSPHATASE 66 U/L (45-117); ALT/SGPT 36 U/L (12-78); ANION GAP 8 MEQ/L (8-16); AST/SGOT 27 U/L (7-37); BILIRUBIN,TOTAL 0.3 MG/DL (0.2-1.0); BLOOD UREA NITROGEN 40 MG/DL (7-18); CALCIUM LEVEL 8.6 MG/DL (8.8-10.2); CARBON DIOXIDE LEVEL 26 MEQ/L (21-32); CHLORIDE LEVEL 111 MEQ/L (98-107); CREATININE FOR GFR 2.22 MG/DL (0.55-1.30); GLOMERULAR FILTRATION RATE 23.2 (>39); GLUCOSE, FASTING 149 MG/DL (70-100); POTASSIUM SERUM 3.8 MEQ/L (3.5-5.1); SODIUM LEVEL 145 MEQ/L (136-145); TOTAL PROTEIN 5.9 GM/DL (6.4-8.2)
[2018-04-12] MEDS: QUEtiapine FUMARATE 25 MG TAB PO (21:41)
[2018-04-12] MEDS: PALIPERIDONE 6 MG ER TAB (INVEGA) PO (21:41)
[2018-04-12] MEDS: LATANOPROST 0.005% OPHTH SOLN 2.5 ML OU (21:42)
[2018-04-12] MEDS: SIMVASTATIN 20 MG TAB PO (21:42)
[2018-04-12] MEDS: PRAZOSIN 1 MG CAP PO (21:42)
[2018-04-12] MEDS: OLANZapine ORAL DISINTEGRATING TAB 5MG PO (21:42)
[2018-04-13] MEDS: ACETAMINOPHEN TAB 650MG DOSE (2X325MG) PO (06:31)
[2018-04-13] MEDS: ASPIRIN 81 MG ENTERIC TAB PO (08:24)
[2018-04-13] MEDS: LACTOBACILLUS ACIDOPHILUS CAP (BACID) PO ×2 (08:24→20:56)
[2018-04-13] MEDS: OXcarbazepine 150 MG TAB PO (08:24)
[2018-04-13] MEDS: CARVedilol 3.125 MG TAB PO ×2 (08:24→20:57)
[2018-04-13] MEDS: PALIPERIDONE 3 MG ER TAB (INVEGA) PO (08:24)
[2018-04-13] MEDS: CHLORTHALIDONE 12.5MG PER 1/2 TABLET PO (08:25)
[2018-04-13 09:51] LABS: ANION GAP 4 MEQ/L (8-16); BLOOD UREA NITROGEN 35 MG/DL (7-18); CALCIUM LEVEL 8.7 MG/DL (8.8-10.2); CARBON DIOXIDE LEVEL 28 MEQ/L (21-32); CHLORIDE LEVEL 115 MEQ/L (98-107); CREATININE FOR GFR 1.88 MG/DL (0.55-1.30); GLOMERULAR FILTRATION RATE 28.1 (>39); GLUCOSE, FASTING 95 MG/DL (70-100); MAGNESIUM LEVEL 2.3 MG/DL (1.8-2.4); POTASSIUM SERUM 4.3 MEQ/L (3.5-5.1); SODIUM LEVEL 147 MEQ/L (136-145)
[2018-04-13 10:08] LABS: FERRITIN 544 NG/ML (8-252); IRON (FE) 61 UG/DL (50-170); PERCENT SATURATION 27.5 % (13.2-45.0); TOTAL IRON BINDING CAPACITY 222 UG/DL (250-450)
[2018-04-13] MEDS: LATANOPROST 0.005% OPHTH SOLN 2.5 ML OU (20:56)
[2018-04-13] MEDS: QUEtiapine FUMARATE 25 MG TAB PO (20:57)
[2018-04-13] MEDS: PALIPERIDONE 6 MG ER TAB (INVEGA) PO (20:57)
[2018-04-13] MEDS: OXcarbazepine 300 MG TAB PO (20:58)
[2018-04-13] MEDS: QUEtiapine FUMARATE 100 MG TAB PO (20:58)
[2018-04-13] MEDS: SIMVASTATIN 20 MG TAB PO (20:58)
[2018-04-13] MEDS: diphenhydrAMINE 50 MG CAP PO (20:58)
[2018-04-13] MEDS: OLANZapine ORAL DISINTEGRATING TAB 5MG PO (20:59)
[2018-04-13] MEDS: PRAZOSIN 1 MG CAP PO (21:00)
[2018-04-14 06:56] LABS: HEMATOCRIT 29.8 % (36.0-47.0); HEMOGLOBIN 9.9 g/dl (12.0-15.5); MEAN CORPUSCULAR HEMOGLOBIN 33.9 pg (27.0-33.0); MEAN CORPUSCULAR HGB CONC 33.2 g/dl (32.0-36.5); MEAN CORPUSCULAR VOLUME 102.1 fl (80.0-96.0); PLATELET COUNT, AUTOMATED 174 10^3/uL (150-450); RED BLOOD COUNT 2.92 10^6/uL (4.00-5.40); RED CELL DISTRIBUTION WIDTH 11.9 % (11.5-14.5); WHITE BLOOD COUNT 7.7 10^3/uL (4.0-10.0)
[2018-04-14 07:13] LABS: ANION GAP 5 MEQ/L (8-16); BLOOD UREA NITROGEN 37 MG/DL (7-18); CALCIUM LEVEL 9.1 MG/DL (8.8-10.2); CARBON DIOXIDE LEVEL 27 MEQ/L (21-32); CHLORIDE LEVEL 113 MEQ/L (98-107); CREATININE FOR GFR 2.03 MG/DL (0.55-1.30); GLOMERULAR FILTRATION RATE 25.7 (>39); GLUCOSE, FASTING 99 MG/DL (70-100); POTASSIUM SERUM 4.8 MEQ/L (3.5-5.1); SODIUM LEVEL 145 MEQ/L (136-145)
[2018-04-14] MEDS: CHLORTHALIDONE 25 MG TAB PO (08:15)
[2018-04-14] MEDS: PALIPERIDONE 3 MG ER TAB (INVEGA) PO ×2 (08:15→08:20)
[2018-04-14] MEDS: LACTOBACILLUS ACIDOPHILUS CAP (BACID) PO ×2 (08:15→21:10)
[2018-04-14] MEDS: CARVedilol 3.125 MG TAB PO ×2 (08:15→21:11)
[2018-04-14] MEDS: OXcarbazepine 300 MG TAB PO ×2 (08:15→21:12)
[2018-04-14] MEDS: ASPIRIN 81 MG ENTERIC TAB PO (08:15)
[2018-04-14] MEDS: PRAZOSIN 1 MG CAP PO (21:00)
[2018-04-14] MEDS: LATANOPROST 0.005% OPHTH SOLN 2.5 ML OU (21:09)
[2018-04-14] MEDS: QUEtiapine FUMARATE 25 MG TAB PO (21:10)
[2018-04-14] MEDS: risperiDONE 2 MG TAB PO (21:10)
[2018-04-14] MEDS: SIMVASTATIN 20 MG TAB PO (21:11)
[2018-04-14] MEDS: QUEtiapine FUMARATE 100 MG TAB PO (21:12)
[2018-04-14] MEDS: OLANZapine ORAL DISINTEGRATING TAB 5MG PO (21:12)
[2018-04-15] MEDS: CHLORTHALIDONE 25 MG TAB PO (08:40)
[2018-04-15] MEDS: risperiDONE 2 MG TAB PO (08:40)
[2018-04-15] MEDS: ASPIRIN 81 MG ENTERIC TAB PO (08:40)
[2018-04-15] MEDS: CARVedilol 3.125 MG TAB PO ×2 (08:40→20:14)
[2018-04-15] MEDS: OXcarbazepine 300 MG TAB PO ×2 (08:40→20:14)
[2018-04-15] MEDS: LACTOBACILLUS ACIDOPHILUS CAP (BACID) PO ×2 (08:40→20:14)
[2018-04-15 19:10] LABS: ALKALINE PHOSPHATASE 71 U/L (45-117); ALT/SGPT 31 U/L (12-78); AST/SGOT 28 U/L (7-37); BILIRUBIN,DIRECT < 0.1 MG/DL (0.0-0.2); BILIRUBIN,TOTAL 0.3 MG/DL (0.2-1.0)
[2018-04-15] MEDS: LATANOPROST 0.005% OPHTH SOLN 2.5 ML OU (20:13)
[2018-04-15] MEDS: QUEtiapine FUMARATE 50 MG TAB PO (20:14)
[2018-04-15] MEDS: risperiDONE 1 MG TAB PO (20:15)
[2018-04-15] MEDS: SIMVASTATIN 20 MG TAB PO (20:15)
[2018-04-15] MEDS: OLANZapine ORAL DISINTEGRATING TAB 5MG PO (20:15)
[2018-04-15] MEDS: PRAZOSIN 1 MG CAP PO (20:16)
[2018-04-16] MEDS: risperiDONE 1 MG TAB PO ×2 (08:09→20:49)
[2018-04-16] MEDS: OXcarbazepine 300 MG TAB PO ×2 (08:09→20:49)
[2018-04-16] MEDS: ASPIRIN 81 MG ENTERIC TAB PO (08:09)
[2018-04-16] MEDS: CHLORTHALIDONE 25 MG TAB PO (08:10)
[2018-04-16] MEDS: CARVedilol 3.125 MG TAB PO ×2 (08:10→20:53)
[2018-04-16] MEDS: LACTOBACILLUS ACIDOPHILUS CAP (BACID) PO ×2 (08:10→20:49)
[2018-04-16 09:24] LABS: ALBUMIN 3.3 GM/DL (3.2-5.2); ALKALINE PHOSPHATASE 76 U/L (45-117); ALT/SGPT 34 U/L (12-78); ANION GAP 7 MEQ/L (8-16); AST/SGOT 28 U/L (7-37); BILIRUBIN,DIRECT < 0.1 MG/DL (0.0-0.2); BILIRUBIN,TOTAL 0.3 MG/DL (0.2-1.0); BLOOD UREA NITROGEN 37 MG/DL (7-18); CALCIUM LEVEL 9.4 MG/DL (8.8-10.2); CARBON DIOXIDE LEVEL 28 MEQ/L (21-32); CHLORIDE LEVEL 111 MEQ/L (98-107); CREATININE FOR GFR 2.04 MG/DL (0.55-1.30); GLOMERULAR FILTRATION RATE 25.6 (>39); GLUCOSE, FASTING 100 MG/DL (70-100); POTASSIUM SERUM 4.5 MEQ/L (3.5-5.1); SODIUM LEVEL 146 MEQ/L (136-145); TOTAL PROTEIN 6.6 GM/DL (6.4-8.2)
[2018-04-16] MEDS: QUEtiapine FUMARATE 50 MG TAB PO (20:48)
[2018-04-16] MEDS: LATANOPROST 0.005% OPHTH SOLN 2.5 ML OU (20:48)
[2018-04-16] MEDS: PRAZOSIN 1 MG CAP PO ×2 (20:49→20:54)
[2018-04-16] MEDS: SIMVASTATIN 20 MG TAB PO (20:52)
[2018-04-17 08:05] LABS: ANION GAP 6 MEQ/L (8-16); BLOOD UREA NITROGEN 40 MG/DL (7-18); CARBON DIOXIDE LEVEL 28 MEQ/L (21-32); CHLORIDE LEVEL 110 MEQ/L (98-107); GLOMERULAR FILTRATION RATE 26.1 (>39); GLUCOSE, FASTING 112 MG/DL (70-100); POTASSIUM SERUM 4.1 MEQ/L (3.5-5.1); SODIUM LEVEL 144 MEQ/L (136-145)
[2018-04-17] MEDS: CARVedilol 3.125 MG TAB PO ×2 (08:25→20:55)
[2018-04-17] MEDS: risperiDONE 1 MG TAB PO ×2 (08:25→20:56)
[2018-04-17] MEDS: CHLORTHALIDONE 25 MG TAB PO (08:25)
[2018-04-17] MEDS: OXcarbazepine 300 MG TAB PO ×2 (08:25→20:56)
[2018-04-17] MEDS: LACTOBACILLUS ACIDOPHILUS CAP (BACID) PO ×2 (08:25→20:54)
[2018-04-17] MEDS: ASPIRIN 81 MG ENTERIC TAB PO (08:25)
[2018-04-17] MEDS: FUROSEMIDE 20 MG TAB PO (14:44)
[2018-04-17] MEDS: PRAZOSIN 1 MG CAP PO ×3 (20:55→21:00)
[2018-04-17] MEDS: QUEtiapine FUMARATE 50 MG TAB PO (20:56)
[2018-04-17] MEDS: SIMVASTATIN 20 MG TAB PO (20:56)
[2018-04-17] MEDS: LATANOPROST 0.005% OPHTH SOLN 2.5 ML OU (20:58)
[2018-04-18] MEDS: ASPIRIN 81 MG ENTERIC TAB PO (08:03)
[2018-04-18] MEDS: risperiDONE 1 MG TAB PO ×2 (08:03→21:11)
[2018-04-18] MEDS: FUROSEMIDE 20 MG TAB PO (08:03)
[2018-04-18] MEDS: CHLORTHALIDONE 25 MG TAB PO (08:03)
[2018-04-18] MEDS: OXcarbazepine 300 MG TAB PO ×2 (08:03→21:10)
[2018-04-18] MEDS: LACTOBACILLUS ACIDOPHILUS CAP (BACID) PO ×2 (08:03→21:10)
[2018-04-18] MEDS: CARVedilol 3.125 MG TAB PO ×2 (08:03→21:11)
[2018-04-18 08:15] LABS: ANION GAP 9 MEQ/L (8-16); BLOOD UREA NITROGEN 42 MG/DL (7-18); CALCIUM LEVEL 8.9 MG/DL (8.8-10.2); CARBON DIOXIDE LEVEL 27 MEQ/L (21-32); CHLORIDE LEVEL 107 MEQ/L (98-107); CREATININE FOR GFR 2.12 MG/DL (0.55-1.30); GLOMERULAR FILTRATION RATE 24.4 (>39); GLUCOSE, FASTING 117 MG/DL (70-100); MAGNESIUM LEVEL 2.3 MG/DL (1.8-2.4); POTASSIUM SERUM 4.1 MEQ/L (3.5-5.1); SODIUM LEVEL 143 MEQ/L (136-145)
[2018-04-18] MEDS: LATANOPROST 0.005% OPHTH SOLN 2.5 ML OU (21:00)
[2018-04-18] MEDS: PRAZOSIN 1 MG CAP PO (21:00)
[2018-04-18] MEDS: QUEtiapine FUMARATE 50 MG TAB PO (21:10)
[2018-04-18] MEDS: SIMVASTATIN 20 MG TAB PO (21:10)
[2018-04-19 07:43] LABS: ANION GAP 7 MEQ/L (8-16); BLOOD UREA NITROGEN 47 MG/DL (7-18); CALCIUM LEVEL 8.9 MG/DL (8.8-10.2); CARBON DIOXIDE LEVEL 28 MEQ/L (21-32); CHLORIDE LEVEL 109 MEQ/L (98-107); CREATININE FOR GFR 2.42 MG/DL (0.55-1.30); GLUCOSE, FASTING 104 MG/DL (70-100); POTASSIUM SERUM 4.1 MEQ/L (3.5-5.1); SODIUM LEVEL 144 MEQ/L (136-145)
[2018-04-19] MEDS: OXcarbazepine 300 MG TAB PO ×2 (08:21→22:11)
[2018-04-19] MEDS: LACTOBACILLUS ACIDOPHILUS CAP (BACID) PO ×2 (08:21→22:11)
[2018-04-19] MEDS: FUROSEMIDE 20 MG TAB PO (08:21)
[2018-04-19] MEDS: risperiDONE 1 MG TAB PO ×2 (08:21→22:11)
[2018-04-19] MEDS: CHLORTHALIDONE 25 MG TAB PO (08:21)
[2018-04-19] MEDS: CARVedilol 3.125 MG TAB PO ×2 (08:21→22:12)
[2018-04-19] MEDS: ASPIRIN 81 MG ENTERIC TAB PO (08:21)
[2018-04-19] MEDS: PRAZOSIN 1 MG CAP PO (21:00)
[2018-04-19] MEDS: LATANOPROST 0.005% OPHTH SOLN 2.5 ML OU (21:21)
[2018-04-19] MEDS: QUEtiapine FUMARATE 50 MG TAB PO (22:11)
[2018-04-19] MEDS: SIMVASTATIN 20 MG TAB PO (22:11)
[2018-04-20] MEDS: risperiDONE 1 MG TAB PO ×2 (08:33→21:37)
[2018-04-20] MEDS: ASPIRIN 81 MG ENTERIC TAB PO (08:34)
[2018-04-20] MEDS: CARVedilol 3.125 MG TAB PO ×2 (08:34→21:38)
[2018-04-20] MEDS: OXcarbazepine 300 MG TAB PO ×2 (08:34→21:37)
[2018-04-20] MEDS: LACTOBACILLUS ACIDOPHILUS CAP (BACID) PO ×2 (08:34→21:36)
[2018-04-20] MEDS: FUROSEMIDE 20 MG TAB PO (08:34)
[2018-04-20] MEDS: PRAZOSIN 1 MG CAP PO (21:00)
[2018-04-20] MEDS: SIMVASTATIN 20 MG TAB PO (21:37)
[2018-04-20] MEDS: QUEtiapine FUMARATE 50 MG TAB PO (21:37)
[2018-04-20] MEDS: LATANOPROST 0.005% OPHTH SOLN 2.5 ML OU (21:39)
[2018-04-20] MEDS: ACETAMINOPHEN TAB 650MG DOSE (2X325MG) PO (21:39)
[2018-04-21 07:53] LABS: ALBUMIN 3.1 GM/DL (3.2-5.2); ALBUMIN/GLOBULIN RATIO 1.03 (1.00-1.93); ALKALINE PHOSPHATASE 78 U/L (45-117); ALT/SGPT 26 U/L (12-78); ANION GAP 8 MEQ/L (8-16); AST/SGOT 23 U/L (7-37); BILIRUBIN,DIRECT < 0.1 MG/DL (0.0-0.2); BILIRUBIN,TOTAL 0.2 MG/DL (0.2-1.0); BLOOD UREA NITROGEN 64 MG/DL (7-18); CALCIUM LEVEL 8.7 MG/DL (8.8-10.2); CARBON DIOXIDE LEVEL 29 MEQ/L (21-32); CHLORIDE LEVEL 107 MEQ/L (98-107); CREATININE FOR GFR 2.35 MG/DL (0.55-1.30); GLOMERULAR FILTRATION RATE 21.7 (>39); GLUCOSE, FASTING 105 MG/DL (70-100); POTASSIUM SERUM 3.9 MEQ/L (3.5-5.1); SODIUM LEVEL 144 MEQ/L (136-145); TOTAL PROTEIN 6.1 GM/DL (6.4-8.2)
[2018-04-21] MEDS: ASPIRIN 81 MG ENTERIC TAB PO (08:33)
[2018-04-21] MEDS: OXcarbazepine 300 MG TAB PO ×2 (08:33→20:57)
[2018-04-21] MEDS: FUROSEMIDE 20 MG TAB PO (08:33)
[2018-04-21] MEDS: LACTOBACILLUS ACIDOPHILUS CAP (BACID) PO ×2 (08:33→20:56)
[2018-04-21] MEDS: risperiDONE 1 MG TAB PO ×2 (08:33→20:58)
[2018-04-21] MEDS: CARVedilol 3.125 MG TAB PO ×2 (08:34→20:57)
[2018-04-21] MEDS: LATANOPROST 0.005% OPHTH SOLN 2.5 ML OU (20:57)
[2018-04-21] MEDS: QUEtiapine FUMARATE 50 MG TAB PO (20:57)
[2018-04-21] MEDS: PRAZOSIN 1 MG CAP PO (20:58)
[2018-04-21] MEDS: TORSEMIDE 20 MG TAB PO (21:00)
[2018-04-21] MEDS: SIMVASTATIN 20 MG TAB PO (21:02)
[2018-04-22 07:47] LABS: ANION GAP 9 MEQ/L (8-16); BLOOD UREA NITROGEN 71 MG/DL (7-18); CARBON DIOXIDE LEVEL 27 MEQ/L (21-32); CHLORIDE LEVEL 106 MEQ/L (98-107); CREATININE FOR GFR 2.54 MG/DL (0.55-1.30); GLOMERULAR FILTRATION RATE 19.8 (>39); GLUCOSE, FASTING 121 MG/DL (70-100); SODIUM LEVEL 142 MEQ/L (136-145)
[2018-04-22] MEDS: ASPIRIN 81 MG ENTERIC TAB PO (08:28)
[2018-04-22] MEDS: TORSEMIDE 20 MG TAB PO (08:28)
[2018-04-22] MEDS: risperiDONE 1 MG TAB PO (08:28)
[2018-04-22] MEDS: OXcarbazepine 300 MG TAB PO ×2 (08:28→22:15)
[2018-04-22] MEDS: LACTOBACILLUS ACIDOPHILUS CAP (BACID) PO ×2 (08:28→22:15)
[2018-04-22] MEDS: CARVedilol 3.125 MG TAB PO ×2 (08:28→22:15)
[2018-04-22] MEDS: BENZTROPINE 1 MG TAB PO ×2 (10:31→22:15)
[2018-04-22] MEDS: LATANOPROST 0.005% OPHTH SOLN 2.5 ML OU (22:14)
[2018-04-22] MEDS: QUEtiapine FUMARATE 50 MG TAB PO (22:15)
[2018-04-22] MEDS: SIMVASTATIN 20 MG TAB PO (22:19)
[2018-04-23 07:29] LABS: ANION GAP 7 MEQ/L (8-16); BLOOD UREA NITROGEN 79 MG/DL (7-18); CARBON DIOXIDE LEVEL 29 MEQ/L (21-32); CHLORIDE LEVEL 106 MEQ/L (98-107); CREATININE FOR GFR 2.62 MG/DL (0.55-1.30); GLOMERULAR FILTRATION RATE 19.1 (>39); GLUCOSE, FASTING 119 MG/DL (70-100); POTASSIUM SERUM 3.9 MEQ/L (3.5-5.1); SODIUM LEVEL 142 MEQ/L (136-145)
[2018-04-23] MEDS: risperiDONE 2 MG TAB PO (09:35)
[2018-04-23] MEDS: ASPIRIN 81 MG ENTERIC TAB PO (09:35)
[2018-04-23] MEDS: TORSEMIDE 10 MG TABLET PO (09:35)
[2018-04-23] MEDS: BENZTROPINE 1 MG TAB PO ×2 (09:35→21:36)
[2018-04-23] MEDS: OXcarbazepine 300 MG TAB PO ×2 (09:35→21:36)
[2018-04-23] MEDS: CARVedilol 3.125 MG TAB PO ×2 (09:35→21:37)
[2018-04-23] MEDS: LACTOBACILLUS ACIDOPHILUS CAP (BACID) PO ×2 (09:35→21:37)
[2018-04-23] MEDS: QUEtiapine FUMARATE 50 MG TAB PO (21:36)
[2018-04-23] MEDS: risperiDONE 3 MG TAB PO (21:37)
[2018-04-23] MEDS: SIMVASTATIN 20 MG TAB PO (21:37)
[2018-04-23] MEDS: LATANOPROST 0.005% OPHTH SOLN 2.5 ML OU (21:37)
[2018-04-24 07:43] LABS: ANION GAP 8 MEQ/L (8-16); BLOOD UREA NITROGEN 70 MG/DL (7-18); CALCIUM LEVEL 9.2 MG/DL (8.8-10.2); CARBON DIOXIDE LEVEL 29 MEQ/L (21-32); CHLORIDE LEVEL 104 MEQ/L (98-107); CREATININE FOR GFR 2.28 MG/DL (0.55-1.30); GLOMERULAR FILTRATION RATE 22.5 (>39); GLUCOSE, FASTING 123 MG/DL (70-100); POTASSIUM SERUM 3.8 MEQ/L (3.5-5.1); SODIUM LEVEL 141 MEQ/L (136-145)
[2018-04-24] MEDS: BENZTROPINE 1 MG TAB PO ×2 (09:07→22:19)
[2018-04-24] MEDS: ASPIRIN 81 MG ENTERIC TAB PO (09:07)
[2018-04-24] MEDS: LACTOBACILLUS ACIDOPHILUS CAP (BACID) PO ×2 (09:07→22:19)
[2018-04-24] MEDS: OXcarbazepine 300 MG TAB PO ×2 (09:07→22:20)
[2018-04-24] MEDS: TORSEMIDE 10 MG TABLET PO (09:07)
[2018-04-24] MEDS: risperiDONE 2 MG TAB PO (09:07)
[2018-04-24] MEDS: CARVedilol 3.125 MG TAB PO ×2 (09:11→22:19)
[2018-04-24] MEDS: risperiDONE 3 MG TAB PO (22:19)
[2018-04-24] MEDS: QUEtiapine FUMARATE 50 MG TAB PO (22:19)
[2018-04-24] MEDS: SIMVASTATIN 20 MG TAB PO (22:19)
[2018-04-24] MEDS: LATANOPROST 0.005% OPHTH SOLN 2.5 ML OU (22:20)
[2018-04-25] MEDS: TORSEMIDE 10 MG TABLET PO (09:30)
[2018-04-25] MEDS: ASPIRIN 81 MG ENTERIC TAB PO (09:30)
[2018-04-25] MEDS: risperiDONE 2 MG TAB PO (09:30)
[2018-04-25] MEDS: OXcarbazepine 300 MG TAB PO ×2 (09:30→20:49)
[2018-04-25] MEDS: LACTOBACILLUS ACIDOPHILUS CAP (BACID) PO ×2 (09:30→20:49)
[2018-04-25] MEDS: CARVedilol 3.125 MG TAB PO ×2 (09:30→20:48)
[2018-04-25] MEDS: BENZTROPINE 1 MG TAB PO ×2 (09:30→20:49)
[2018-04-25] MEDS: FERROUS GLUCONATE 324 MG TAB PO (17:16)
[2018-04-25] MEDS: POTASSIUM CHLORIDE 10 MEQ SR TABLET PO (17:16)
[2018-04-25] MEDS: LATANOPROST 0.005% OPHTH SOLN 2.5 ML OU (20:48)
[2018-04-25] MEDS: QUEtiapine FUMARATE 50 MG TAB PO (20:49)
[2018-04-25] MEDS: risperiDONE 3 MG TAB PO (20:49)
[2018-04-25] MEDS: SIMVASTATIN 20 MG TAB PO (20:49)
[2018-04-26 06:56] LABS: HEMATOCRIT 30.3 % (36.0-47.0); HEMOGLOBIN 10.2 g/dl (12.0-15.5); MEAN CORPUSCULAR HEMOGLOBIN 34.2 pg (27.0-33.0); MEAN CORPUSCULAR HGB CONC 33.7 g/dl (32.0-36.5); MEAN CORPUSCULAR VOLUME 101.7 fl (80.0-96.0); PLATELET COUNT, AUTOMATED 249 10^3/uL (150-450); RED BLOOD COUNT 2.98 10^6/uL (4.00-5.40); RED CELL DISTRIBUTION WIDTH 11.7 % (11.5-14.5); WHITE BLOOD COUNT 7.9 10^3/uL (4.0-10.0)
[2018-04-26 07:13] LABS: ANION GAP 7 MEQ/L (8-16); BLOOD UREA NITROGEN 63 MG/DL (7-18); CALCIUM LEVEL 9.2 MG/DL (8.8-10.2); CARBON DIOXIDE LEVEL 30 MEQ/L (21-32); CHLORIDE LEVEL 107 MEQ/L (98-107); CREATININE FOR GFR 2.47 MG/DL (0.55-1.30); FERRITIN 548 NG/ML (8-252); GLOMERULAR FILTRATION RATE 20.5 (>39); GLUCOSE, FASTING 116 MG/DL (70-100); IRON (FE) 69 UG/DL (50-170); PERCENT SATURATION 26.5 % (13.2-45.0); PHOSPHORUS LEVEL 4.4 MG/DL (2.5-4.9); POTASSIUM SERUM 3.8 MEQ/L (3.5-5.1); SODIUM LEVEL 144 MEQ/L (136-145); TOTAL IRON BINDING CAPACITY 260 UG/DL (250-450)
[2018-04-26] MEDS: LACTOBACILLUS ACIDOPHILUS CAP (BACID) PO ×2 (09:00→23:57)
[2018-04-26] MEDS: OXcarbazepine 300 MG TAB PO ×2 (09:15→23:55)
[2018-04-26] MEDS: BENZTROPINE 1 MG TAB PO ×2 (09:15→23:57)
[2018-04-26] MEDS: POTASSIUM CHLORIDE 10 MEQ SR TABLET PO (09:15)
[2018-04-26] MEDS: CARVedilol 3.125 MG TAB PO ×2 (09:15→23:57)
[2018-04-26] MEDS: ASPIRIN 81 MG ENTERIC TAB PO (09:15)
[2018-04-26] MEDS: risperiDONE 2 MG TAB PO (09:15)
[2018-04-26] MEDS: TORSEMIDE 20 MG TAB PO (09:15)
[2018-04-26] MEDS: FERROUS GLUCONATE 324 MG TAB PO (09:15)
[2018-04-26] MEDS: LATANOPROST 0.005% OPHTH SOLN 2.5 ML OU (23:55)
[2018-04-26] MEDS: SIMVASTATIN 20 MG TAB PO (23:55)
[2018-04-26] MEDS: risperiDONE 3 MG TAB PO (23:57)
[2018-04-26] MEDS: QUEtiapine FUMARATE 50 MG TAB PO (23:57)
[2018-04-27] MEDS: ACETAMINOPHEN TAB 650MG DOSE (2X325MG) PO (04:02)
[2018-04-27] MEDS: LACTOBACILLUS ACIDOPHILUS CAP (BACID) PO ×2 (08:52→21:51)
[2018-04-27] MEDS: BENZTROPINE 1 MG TAB PO ×2 (08:52→21:51)
[2018-04-27] MEDS: FERROUS GLUCONATE 324 MG TAB PO (08:53)
[2018-04-27] MEDS: ASPIRIN 81 MG ENTERIC TAB PO (08:53)
[2018-04-27] MEDS: TORSEMIDE 20 MG TAB PO (08:53)
[2018-04-27] MEDS: POTASSIUM CHLORIDE 10 MEQ SR TABLET PO (08:53)
[2018-04-27] MEDS: risperiDONE 2 MG TAB PO (08:54)
[2018-04-27] MEDS: CARVedilol 3.125 MG TAB PO ×2 (08:54→21:52)
[2018-04-27] MEDS: OXcarbazepine 300 MG TAB PO ×2 (08:55→21:00)
[2018-04-27] MEDS: LATANOPROST 0.005% OPHTH SOLN 2.5 ML OU (21:00)
[2018-04-27] MEDS: QUEtiapine FUMARATE 50 MG TAB PO (21:00)
[2018-04-27] MEDS: risperiDONE 3 MG TAB PO (21:00)
[2018-04-27] MEDS: SIMVASTATIN 20 MG TAB PO (21:52)
[2018-04-28] MEDS: ACETAMINOPHEN TAB 650MG DOSE (2X325MG) PO (02:57)
[2018-04-28 07:16] LABS: ALBUMIN 3.2 GM/DL (3.2-5.2); ANION GAP 7 MEQ/L (8-16); BLOOD UREA NITROGEN 54 MG/DL (7-18); CALCIUM LEVEL 9.3 MG/DL (8.8-10.2); CARBON DIOXIDE LEVEL 31 MEQ/L (21-32); CHLORIDE LEVEL 106 MEQ/L (98-107); CREATININE FOR GFR 2.03 MG/DL (0.55-1.30); GLOMERULAR FILTRATION RATE 25.7 (>39); GLUCOSE, FASTING 121 MG/DL (70-100); PHOSPHORUS LEVEL 4.5 MG/DL (2.5-4.9); SODIUM LEVEL 144 MEQ/L (136-145)
[2018-04-28] MEDS: ASPIRIN 81 MG ENTERIC TAB PO (08:08)
[2018-04-28] MEDS: risperiDONE 2 MG TAB PO (08:08)
[2018-04-28] MEDS: OXcarbazepine 300 MG TAB PO (08:08)
[2018-04-28] MEDS: POTASSIUM CHLORIDE 10 MEQ SR TABLET PO (08:08)
[2018-04-28] MEDS: BENZTROPINE 1 MG TAB PO (08:08)
[2018-04-28] MEDS: LACTOBACILLUS ACIDOPHILUS CAP (BACID) PO (08:08)
[2018-04-28] MEDS: CARVedilol 3.125 MG TAB PO (08:10)
[2018-04-28] MEDS: FERROUS GLUCONATE 324 MG TAB PO (08:10)
[2018-04-28] MEDS: TORSEMIDE 20 MG TAB PO (08:14)
== END 2018-04-28 13:15 | DRG 885 ==
LOC: M PSY 14:40
DX: F31.9 Bipolar disorder, unspecified (principal); N18.4 Chronic kidney disease, stage 4 (severe); E87.2 Acidosis; F29 Unspecified psychosis not due to a substance or known physiological condition; F41.1 Generalized anxiety disorder; I12.9 Hypertensive chronic kidney disease with stage 1 through stage 4 chronic kidney disease, or unspecified chronic kidney disease; D47.2 Monoclonal gammopathy; E11.22 Type 2 diabetes mellitus with diabetic chronic kidney disease; E78.00 Pure hypercholesterolemia, unspecified; D64.9 Anemia, unspecified; K59.00 Constipation, unspecified; F03.90 Unspecified dementia, unspecified severity, without behavioral disturbance, psychotic disturbance, mood disturbance, and anxiety; H40.9 Unspecified glaucoma; R60.0 Localized edema; Z79.82 Long term (current) use of aspirin; Z79.899 Other long term (current) drug therapy; Z88.8 Allergy status to other drugs, medicaments and biological substances

== ENCOUNTER → 2021-07-17 | Outpatient (REF) | payer MEDICARE ==
[~2021-07-17] MED LIST: ACET1TAB55 PO; AMLO1TAB25 PO; ARIP1TAB6 PO; ASPI81TA26 PO; BENZ-52 PO; CARV3.12 PO; DEMA20TA6 PO; FURO20TA2 PO; KLOR10TA76 PO; LATA0.0013 OU; LOSA25TA14 PO; OXCA300T14 PO; QUET50TA4 PO; RISP2TAB32 PO; RISP3TAB20 PO; SIMV20TA22 PO; SODI325T9 PO
== END ==
LOC: M LAB REF 17:08
PROVIDERS: ATTEND Nurse Practitioner Family
DX: E83.42 Hypomagnesemia (principal)